=== PATIENT | male | born 1975 | race Caucasian/White ===

== ENCOUNTER 2017-05-26 11:58 | Emergency (ER) | payer SELFPAY ==
[2017-05-26 12:24] VITALS: BP 104/79
[2017-05-26] MEDS ORDERED: NORMAL SALINE 1000 ML 1,000 ML IV ONE (13:20)
--- NOTE | 2017-05-26 13:21 | ER Document Report ---
ED General - General Chief Complaint: Seizure Stated Complaint: SEIZURE Time Seen by Provider: 05/26/17 12:58 Mode of Arrival: Medic Information source: Patient, Relative Notes: 42-year-old male chronic alcoholic drinks about 8-12 beers a night presents after seizure episode today. Patient denies any previous seizures in the past. Patient denies any fevers or chills states he feels fine now. was driving noted he contracted and started shaking. Patient was noted in the past to have electrolyte imbalance due to his alcohol use and decrease sodium intake due to his high blood pressure TRAVEL OUTSIDE OF THE [place] IN LAST 30 DAYS: No - HPI Onset: Just prior to arrival Onset/Duration: Sudden Quality of pain: No pain Severity: Mild Pain Level: Denies Associated symptoms: Other Exacerbated by: Denies Relieved by: Denies Similar symptoms previously: No Recently seen / treated by doctor: Yes - Related Data Allergies/Adverse Reactions: No Known Allergies Allergy (Verified 05/26/17 13:05) Past Medical History - Social History Smoking Status: Current Every Day Smoker Cigarette use (# per day): Yes Chew tobacco use (# tins/day): No Smoking Education Provided: No Frequency of alcohol use: Social Drug Abuse: Marijuana Family History: Reviewed & Not Pertinent Patient has suicidal ideation: No Patient has homicidal ideation: No - Past Medical History Cardiac Medical History: Reports: Hx Hypertension Renal/ Medical History: Denies: Hx Peritoneal Dialysis Past Surgical History: Reports: Hx Orthopedic Surgery Review of Systems - Review of Systems Notes: REVIEW OF SYSTEMS: CONSTITUTIONAL : Denies fever, chills, or sweats. Denies recent illness. EENT: Denies eye, ear, throat, or mouth pain or symptoms. Denies nasal or sinus congestion or discharge. Denies throat, tongue, or mouth swelling or difficulty swallowing. CARDIOVASCULAR: Denies chest pain. Denies palpitations or racing or irregular heart beat. Denies ankle edema. RESPIRATORY: Denies cough, cold, or chest congestion. Denies shortness of breath, difficulty breathing, or wheezing. GASTROINTESTINAL: Denies abdominal pain or distention. Denies nausea, vomiting , or diarrhea. Denies blood in vomitus, stools, or per rectum. Denies black, tarry stools. Denies constipation. GENITOURINARY: Denies difficulty urinating, painful urination, burning, frequency, blood in urine, or discharge. MUSCULOSKELETAL: Denies back or neck pain or stiffness. Denies joint pain or swelling. SKIN: Denies rash, lesions or sores. HEMATOLOGIC : Denies easy bruising or bleeding. LYMPHATIC: Denies swollen, enlarged glands. NEUROLOGICAL: admits ot seizure like activity PSYCHIATRIC: Denies anxiety or stress. Denies depression, suicidal ideation, or homicidal ideation. ALL OTHER SYSTEMS REVIEWED AND NEGATIVE. Dictation was performed using [employer] voice recognition software PHYSICAL EXAMINATION: GENERAL:frail appearing male, no acute distress HEAD: Atraumatic, normocephalic. EYES: Pupils equal round and reactive to light, extraocular movements intact, sclera anicteric, conjunctiva are normal. ENT: Nares patent, oropharynx clear without exudates. Moist mucous membranes. NECK: Normal range of motion, supple without lymphadenopathy LUNGS: Breath sounds clear to auscultation bilaterally and equal. No wheezes rales or rhonchi. HEART: Regular rate and rhythm without murmurs ABDOMEN: Soft, nontender, nondistended abdomen. No guarding, no rebound. No masses appreciated. Musculoskeletal: Normal range of motion, no pitting or edema. No cyanosis. NEUROLOGICAL: Cranial nerves grossly intact. Normal speech, normal gait. Normal sensory, motor exams PSYCH: Normal mood, normal affect. SKIN: Warm, Dry, normal turgor, no rashes or lesions noted. Physical Exam - Vital signs Vitals: Temp Pulse Resp BP Pulse Ox 98.3 F 80 16 104/79 97 05/26/17 12:24 05/26/17 12:24 05/26/17 12:24 05/26/17 12:24 05/26/17 12:24 Course - Re-evaluation Re-evalutation: 05/26/17 13:21 pt looks well , i expect hypnatremia, pt refuses ct head 05/26/17 18:09 Mild hyponatremia is noted, patient wishes ot be discharged, is with him and agrees, i explained my ocncerns of withdrawal seziure, he states he has not decreased his intake, states she will watch closely and has been doing so will dc with extremely close follow up and neuro follow up After performing a Medical Screening Examination, I estimate there is LOW risk for ACUTE GLAUCOMA, TEMPORAL ARTERITIS, MENINGITIS, INCRANIAL HEMORRHAGE, or ISCHEMIC STROKE thus I consider the discharge disposition reasonable. I have reevaluated this patient multiple times and no significant life threatening changes are noted. The patient and I have discussed the diagnosis and risks, and we agree with discharging home with close follow-up with the understanding that symptoms and presentations can change. We also discussed returning to the Emergency Department immediately if new or worsening symptoms occur. We have discussed the symptoms which are most concerning (e.g., changing or worsening symptoms, new numbness or weakness, vomiting, fever) that necessitate immediate return. - Vital Signs Vital signs: Temp Pulse Resp BP Pulse Ox 98.3 F 80 16 104/79 97 05/26/17 12:24 05/26/17 12:24 05/26/17 12:24 05/26/17 12:24 05/26/17 12:24 - Laboratory Result Diagrams: 05/26/17 13:50 05/26/17 13:50 Laboratory results interpreted by me: 05/26/17 05/26/17 13:50 13:50 MCV 104 H MCH 36.7 H Plt Count 127 L Seg Neutrophils % 79.1 H Sodium 133.9 L Potassium 3.3 L Chloride 87 L Carbon Dioxide 32 H Glucose 131 H Magnesium 1.4 L Total Bilirubin 2.7 H Direct Bilirubin 0.9 H AST 126 H Alkaline Phosphatase 161 H Discharge - Discharge Clinical Impression: Seizure, Chronic alcohol use Condition: Stable Disposition: HOME, SELF-CARE Instructions: New Seizure ([facility]) Additional Instructions: You are under seizure precautions you are not allowed to drive until cleared by neurology Referrals: LIBRETY BERRY MD [ACTIVE STAFF] - Follow up tomorrow
[2017-05-26 14:07] LABS: ABSOLUTE LYMPHOCYTES (AUTO) 1.3 10^3/uL (0.5-4.7); ABSOLUTE MONOCYTES (AUTO) 0.6 10^3/uL (0.1-1.4); ABSOLUTE NEUT (AUTO) 7.4 10^3/uL (1.7-8.2); BASOPHILS % (AUTO) 0.3 % (0-2); EOSINOPHILS % (AUTO) 0.2 % (0-6); HEMATOCRIT 47.5 % (37.9-51.0); HEMOGLOBIN 16.7 g/dL (13.5-17.0); LYMPHOCYTES % (AUTO) 14.2 % (13-45); MEAN CORPUSCULAR HEMOGLOBIN 36.7 pg (27.0-33.4); MEAN CORPUSCULAR HGB CONC 35.2 g/dL (32.0-36.0); MEAN CORPUSCULAR VOLUME 104 fl (80-97); MONOCYTES % (AUTO) 6.2 % (3-13); PLATELET COUNT 127 10^3/uL (150-450); RED BLOOD COUNT 4.56 10^6/uL (4.35-5.55); RED CELL DISTRIBUTION WIDTH 13.7 % (11.5-14.0); SEGMENTED NEUTROPHILS % (AUTO) 79.1 % (42-78); TOTAL CELLS COUNTED % (AUTO) 100 %; WHITE BLOOD COUNT 9.4 10^3/uL (4.0-10.5)
[2017-05-26 14:38] LABS: ALANINE AMINOTRANSFERASE 66 U/L (21-72); ALBUMIN 4.5 g/dL (3.5-5.0); ALKALINE PHOSPHATASE 161 U/L (38-126); ANION GAP 15 (5-19); ASPARTATE AMINO TRANSFERASE 126 U/L (17-59); BILIRUBIN,DIRECT 0.9 mg/dL (0.0-0.4); BILIRUBIN,TOTAL 2.7 mg/dL (0.2-1.3); BLOOD UREA NITROGEN 8 mg/dL (7-20); CALCIUM 9.5 mg/dL (8.4-10.2); CARBON DIOXIDE 32 mmol/L (22-30); CHLORIDE 87 mmol/L (98-107); GLUCOSE 131 mg/dL (75-110); MAGNESIUM 1.4 mg/dL (1.6-2.3); POTASSIUM 3.3 mmol/L (3.6-5.0); SODIUM 133.9 mmol/L (137-145); TOTAL PROTEIN 8.1 g/dL (6.3-8.2)
== END 2017-05-26 15:06 | disposition home or self-care (01) ==
LOC: ER 11:58
DX: R56.9 Unspecified convulsions (principal); F10.20 Alcohol dependence, uncomplicated; E87.1 Hypo-osmolality and hyponatremia; I10 Essential (primary) hypertension; F17.210 Nicotine dependence, cigarettes, uncomplicated
CPT/HCPCS: 99285; 96360; 36415; 83735; 85025; 80053; J7030

== ENCOUNTER 2017-10-25 10:53 | Inpatient (IN) | payer SELFPAY ==
--- NOTE | 2017-10-25 11:55 | ER Document Report ---
ED General - General Information source: Patient TRAVEL OUTSIDE OF THE [place] IN LAST 30 DAYS: No <YONY AMAYA - Last Filed: 10/25/17 13:47> <[email or web address] - Last Filed: 10/25/17 19:24> - General Chief Complaint: Abdominal Distention Stated Complaint: ABDOMINAL PAIN/WEAKNESS Time Seen by Provider: 10/25/17 11:43 Notes: 42 y.o male presents to the ED with abdominal distention of onset 7-9 weeks ago. Pt reports that he is not able to eat or drink as much as usual due to poor appetite and feeling bloated. He reports that whenever he does eat or drink it is followed by severe diarrhea. He c/o SOB and a pain across the center of his abd. Pt's skin is jaundiced which his states is better since he quit drinking alcohol about 9 weeks ago, around the onset of his distention. Pt reports weight loss of about 20lbs within the past month. Pt denies any vomiting or CP. at bedside reports a PMHx of HTN for which he has not taken his medication in the past week due to not feeling well but has been monitoring his BP at home and reports that his BP has stayed consistent within the pt's normal limits. She also reports a PMHx of seizures due to hyponatremia. She states that he was admitted to another hospital 3 months ago for dehydration, low sodium and other electrolytes, seizures and hallucinations. (YONY AMAYA) - Related Data Allergies/Adverse Reactions: No Known Allergies Allergy (Verified 05/26/17 13:05) Past Medical History - General Information source: Patient - Social History Smoking Status: Current Every Day Smoker Chew tobacco use (# tins/day): No Smoking Education Provided: Yes Frequency of alcohol use: Hx of Heavy alcohol use, recently quit 9 weeks ago. Drug Abuse: Marijuana Family History: Reviewed & Not Pertinent Patient has suicidal ideation: No Patient has homicidal ideation: No - Past Medical History Cardiac Medical History: Reports: Hx Hypertension Neurological Medical History: Reports: Hx Seizures - due to hyponatremia Renal/ Medical History: Denies: Hx Peritoneal Dialysis Past Surgical History: Reports: Hx Orthopedic Surgery <YONY AMAYA - Last Filed: 10/25/17 13:47> Review of Systems - Review of Systems Constitutional: See HPI, Weight loss - 20 lbs in the past month EENT: No symptoms reported Cardiovascular: See HPI. denies: Chest pain Respiratory: See HPI, Short of breath Gastrointestinal: See HPI, Abdomen distended, Abdominal pain, Diarrhea, Poor appetite, Other - feeling bloated. denies: Vomiting Genitourinary: No symptoms reported Male Genitourinary: No symptoms reported Musculoskeletal: No symptoms reported Skin: See HPI, Change in color - jaundiced but improving Hematologic/Lymphatic: No symptoms reported Neurological/Psychological: No symptoms reported -: Yes All other systems reviewed and negative <YONY AMAYA - Last Filed: 10/25/17 13:47> Physical Exam <YONY AMAYA - Last Filed: 10/25/17 13:47> <MARTA HOLBROOK - Last Filed: 10/25/17 19:24> - Vital signs Vitals: Temp Pulse Resp BP Pulse Ox 98.3 F 94 18 123/83 94 10/25/17 10:57 10/25/17 10:57 10/25/17 10:57 10/25/17 10:57 10/25/17 10:57 - Notes Notes: PHYSICAL EXAM GENERAL: Alert, interacts well. No acute distress. HEAD: Normocephalic, atraumatic. EYES: Pupils equal, round, and reactive to light. Extraocular movements intact. Icteric sclera. ENT: Oral mucosa moist, tongue midline. NECK: Full range of motion. Supple. Trachea midline. LUNGS: Clear to auscultation bilaterally, no wheezes, rales, or rhonchi. Appears SOB. On nasal cannula in room. HEART: Regular rate and rhythm. No murmurs, gallops, or rubs. ABDOMEN: Abd distended with fluid wave consistent with ascites. Epigastric tenderness to palpation. Bowel sounds present in all 4 quadrants. No guarding, rebound, or rigidity. EXTREMITIES: Moves all 4 extremities spontaneously. No edema, radial and dorsalis pedis pulses 2/4 bilaterally. No cyanosis. NEUROLOGICAL: Alert and oriented x3. Normal speech. PSYCH: Normal affect, normal mood. SKIN: Jaundiced. Warm, dry. (YONY AMAYA) Mildly cachectic, jaundiced, sclera anicteric. Later on the nasal cannula was removed and had no further shortness of breath. (MARTA HOLBROOK) Course - Laboratory Result Diagrams: 10/25/17 11:58 10/25/17 11:58 <YONY AMAYA - Last Filed: 10/25/17 13:47> - Laboratory Result Diagrams: 10/25/17 11:58 10/25/17 11:58 <MARTA HOLBROOK - Last Filed: 10/25/17 19:24> - Re-evaluation Re-evalutation: 10/25/17 15:32 CBC shows leukocytosis 11.9, mildly,, coags prolonged likely secondary to alcoholic liver disease with a PT of 17.4, PTT of 41.2, chemistries reveal slight low sodium 135.9, hypokalemia with potassium 3.0 which is repleted by mouth, magnesium was checked and is normal, there is acute renal failure with a BUN of 51 and a creatinine of 5.97, Collier catheter was placed to track I and O' s and to make sure there is not any sort of a distal obstruction prostate enlargement etc., total and direct bilirubin were both elevated, abdominal ultrasound shows no problem with the gallbladder or bile ducts, liver is actually mentioned to look normal and there is moderate ascites, urinalysis does not show dehydration or infection. Chest x-ray shows small amount of sulcal fluid but no infiltrate. Discussed case with hospitalist Dr. Padmini Crawford who agrees to accept her patient to her service on general medical floor. (MARTA HOLBROOK) - Vital Signs Vital signs: Temp Pulse Resp BP Pulse Ox 98.3 F 94 16 129/92 H 97 10/25/17 10:57 10/25/17 10:57 10/25/17 18:01 10/25/17 18:00 10/25/17 18:37 - Laboratory Laboratory results interpreted by mt: 10/25/17 10/25/17 10/25/17 11:58 11:58 11:58 WBC 11.9 H RBC 2.63 L Hgb 10.3 L Hct 29.0 L MCV 110 H MCH 39.1 H Absolute Neutrophils 8.4 H PT 17.4 H APTT 41.2 H Sodium 135.9 L Potassium 3.0 L* Chloride 94 L BUN 51 H Creatinine 5.97 H Est GFR ( Amer) 12 L Est GFR (Non-Af Amer) 10 L Calcium 8.2 L Total Bilirubin 8.1 H Direct Bilirubin 6.7 H AST 66 H Albumin 2.7 L Urine Bilirubin Urine Urobilinogen Urine Ascorbic Acid 10/25/17 12:20 WBC RBC Hgb Hct MCV MCH Absolute Neutrophils PT APTT Sodium Potassium Chloride BUN Creatinine Est GFR ( Amer) Est GFR (Non-Af Amer) Calcium Total Bilirubin Direct Bilirubin AST Albumin Urine Bilirubin SMALL H Urine Urobilinogen 4.0 H Urine Ascorbic Acid 40 H Discharge <YONY AMAYA - Last Filed: 10/25/17 13:47> - Discharge Admitting Provider: Hospitalist - [facility] Unit Admitted: Medical Floor <MARTA HOLBROOK - Last Filed: 10/25/17 19:24> - Discharge Clinical Impression: Alcoholic liver disease Acute renal failure Qualifiers: Acute renal failure type: unspecified Qualified Code(s): N17.9 - Acute kidney failure, unspecified Liver failure without hepatic coma Qualifiers: Liver failure chronicity: acute Qualified Code(s): K72.00 - Acute and subacute hepatic failure without coma Condition: Fair Disposition: ADMITTED INPATIENT Scribe Attestation: 10/25/17 19:24 I personally performed the services described in the documentation, reviewed and edited the documentation which was dictated to the scribe in my presence, and it accurately records my words and actions. (MARTA HOLBROOK) Scribe Documentation - Scribe Written by Matthew:: Matthew Crowe 10/25/17 1205 acting as scribe for :: Yodit <YONY AMAYA - Last Filed: 10/25/17 13:47>
[2017-10-25 12:21] LABS: ABSOLUTE BASOPHILS # (AUTO) 0.1 10^3/uL (0.0-0.2); ABSOLUTE EOSINOPHILS # (AUTO) 0.6 10^3/uL (0.0-0.6); ABSOLUTE LYMPHOCYTES (AUTO) 1.8 10^3/uL (0.5-4.7); ABSOLUTE MONOCYTES (AUTO) 1.1 10^3/uL (0.1-1.4); ABSOLUTE NEUT (AUTO) 8.4 10^3/uL (1.7-8.2); BASOPHILS % (AUTO) 0.6 % (0-2); EOSINOPHILS % (AUTO) 4.7 % (0-6); HEMOGLOBIN 10.3 g/dL (13.5-17.0); LYMPHOCYTES % (AUTO) 15.1 % (13-45); MEAN CORPUSCULAR HEMOGLOBIN 39.1 pg (27.0-33.4); MEAN CORPUSCULAR HGB CONC 35.5 g/dL (32.0-36.0); MEAN CORPUSCULAR VOLUME 110 fl (80-97); PLATELET COUNT 247 10^3/uL (150-450); RED BLOOD COUNT 2.63 10^6/uL (4.35-5.55); RED CELL DISTRIBUTION WIDTH 13.1 % (11.5-14.0); SEGMENTED NEUTROPHILS % (AUTO) 70.6 % (42-78); TOTAL CELLS COUNTED % (AUTO) 100 %; WHITE BLOOD COUNT 11.9 10^3/uL (4.0-10.5)
[2017-10-25 12:34] LABS: INTERNATIONAL RATION (INR) 1.35; PROTHROMBIN TIME 17.4 SEC (11.4-15.4)
[2017-10-25 12:35] LABS: PARTIAL THROMBOPLASTIN TIME 41.2 SEC (23.5-35.8)
[2017-10-25 12:39] LABS: ALANINE AMINOTRANSFERASE 28 U/L (21-72); ALBUMIN 2.7 g/dL (3.5-5.0); ALKALINE PHOSPHATASE 119 U/L (38-126); ANION GAP 15 (5-19); ASPARTATE AMINO TRANSFERASE 66 U/L (17-59); BILIRUBIN,DIRECT 6.7 mg/dL (0.0-0.4); BILIRUBIN,TOTAL 8.1 mg/dL (0.2-1.3); BLOOD UREA NITROGEN 51 mg/dL (7-20); CALCIUM 8.2 mg/dL (8.4-10.2); CARBON DIOXIDE 27 mmol/L (22-30); CHLORIDE 94 mmol/L (98-107); GLUCOSE 98 mg/dL (75-110); SODIUM 135.9 mmol/L (137-145); TOTAL PROTEIN 7.1 g/dL (6.3-8.2)
[2017-10-25 12:42] LABS: ALCOHOL < 10 mg/dL (NONE DETECTED)
--- NOTE | 2017-10-25 12:55 | RADIOLOGY REPORT (SQ) ---
EXAM DESCRIPTION: CHEST 2 VIEWS COMPLETED DATE/TIME: 10/25/2017 12:28 pm REASON FOR STUDY: SOB COMPARISON: None. EXAM PARAMETERS: NUMBER OF VIEWS: two views TECHNIQUE: Digital Frontal and Lateral radiographic views of the chest acquired. RADIATION DOSE: NA LIMITATIONS: none FINDINGS: LUNGS AND PLEURA: Bandlike atelectasis just above the right hemidiaphragm. Lungs are otherwise well inflated and free of focal infiltrates. Trace bilateral pleural effusions. No pneumothorax. MEDIASTINUM AND HILAR STRUCTURES: No masses or contour abnormalities. HEART AND VASCULAR STRUCTURES: Heart normal size. No evidence for failure. BONES: Fixation plate and screws along the right clavicle fracture HARDWARE: None in the chest. OTHER: No other significant finding. IMPRESSION: Bandlike atelectasis just above the right lung base. Trace pleural fluid in the posterior costophrenic sulci. TECHNICAL DOCUMENTATION: JOB ID: [id number] [employer]- All Rights Reserved Reading location - IP/workstation name: [email or web address]
[2017-10-25 12:58] LABS: APPEARANCE,URINE CLEAR; BILIRUBIN,URINE SMALL (NEGATIVE); COLOR,URINE YELLOW; GLUCOSE, URINE NEGATIVE (NEGATIVE); KETONES,URINE NEGATIVE (NEGATIVE); LEUKOCYTE ESTERASE,URINE NEGATIVE (NEGATIVE); NITRITE,URINE NEGATIVE (NEGATIVE); PROTEIN,URINE NEGATIVE (NEGATIVE); URINE SPECIFIC GRAVITY 1.014
[2017-10-25] MEDS ORDERED: NORMAL SALINE 1000 ML 1,000 ML IV ONE (13:06)
[2017-10-25] MEDS ORDERED: POTASSIUM CHLORIDE 10 MEQ CAPSULE.ER PO ONE (13:07)
--- NOTE | 2017-10-25 14:53 | RADIOLOGY REPORT (SQ) ---
EXAM DESCRIPTION: U/S ABDOMEN COMPLETE W/DOPPLER COMPLETED DATE/TIME: 10/25/2017 2:36 pm REASON FOR STUDY: new ascites and jaundice COMPARISON: None. TECHNIQUE: Dynamic and static grayscale images acquired of the abdomen and recorded on PACS. Cristao ciaran selected color Doppler and spectral images recorded. LIMITATIONS: None. FINDINGS: PANCREAS: No masses. Visualized pancreatic duct normal caliber. LIVER: Normal size. 15.6 cm. No masses. Normal echotexture. LIVER VASCULATURE: Normal directional flow of the main portal vein and hepatic veins. GALLBLADDER: No stones. Normal wall thickness. No pericholecystic fluid. ULTRASOUND-DETECTED JORDAN'S SIGN: Negative. INTRAHEPATIC DUCTS AND COMMON DUCT: Common bile duct 8.1 mm. No intrahepatic ductal dilatation. INFERIOR VENA CAVA: Normal flow. AORTA: Proximal transverse diameter normal. Mid and distal aorta suboptimally visualized. RIGHT KIDNEY: Normal size. Normal echogenicity. No solid or suspicious masses. No hydronephros is. No calcifications. LEFT KIDNEY: Normal size. Normal echogenicity. No solid or suspicious masses. No hydronephrosi s. No calcifications. SPLEEN: Normal size. No solid masses. PERITONEAL AND PLEURAL SPACES: Moderate ascites. OTHER: No other significant finding. IMPRESSION: Moderate ascites. TECHNICAL DOCUMENTATION: JOB ID: [id number] [employer] All Rights Reserved Reading location - IP/workstation name: [email or web address]
[2017-10-25] MEDS ORDERED: IPRATROPIUM/ALBUTEROL 0.5-2.5 MG/3 ML AMPUL NEB PRN (16:37)
[2017-10-25] MEDS ORDERED: NICOTINE 21 MG/24 HR PATCH.TD24 TD PRN (16:49)
--- NOTE | 2017-10-25 16:56 | PDOC H&P ---
History of Present Illness Admission Date/PCP: 10/25/17 15:51 NO PCP Patient complains of: Abdominal distension History of Present Illness: VANITA ALMARAZ is a 42 year old male with past medical history of Alcohol dependence-quit 2 months ago Tobacco use Hypertension Alcohol withdrawal seizures He quit drinking approximately 2 months ago, and reports that he has developed progressively worsening abdominal distention since then. Over the past few days he experienced generalized weakness progressively worsening dyspnea on exertion and worsening abdominal distention with generalized aches and pains and insomnia. The patient reports taking Aleve PM to help him sleep at night. He had been on lisinopril which he quit taking a couple of weeks ago since it was making him sick. His urine has been dark. He denies any hematemesis or melena. In the emergency room he was found to have acute renal failure with a creatinine of 5.9, hyperbilirubinemia, bilirubin of 8.1 and abdominal distention due to ascites. He was treated with IV fluids, was given a dose of potassium for hypokalemia and referred for admission. Past Medical History Cardiac Medical History: Reports: Hypertension Neurological Medical History: Reports: Seizures - due to hyponatremia Psychiatric Medical History: Reports: Alcohol Dependency, Tobacco Dependency Past Surgical History Past Surgical History: Reports: Orthopedic Surgery Social History Information Source: Patient Smoking Status: Current Every Day Smoker Frequency of Alcohol Use: None - Was drinking half a gallon of liquor daily up until 2 months ago Drugs: Marijuana Hx Prescription Drug Abuse: No - Advance Directive Resuscitation Status: Full Code Family History Family History: CVA Parental Family History Reviewed: Yes Children Family History Reviewed: Yes Sibling(s) Family History Reviewed.: Yes Medication/Allergy Allergies/Adverse Reactions: No Known Allergies Allergy (Verified 05/26/17 13:05) Review of Systems Constitutional: PRESENT: fatigue, weakness. ABSENT: fever(s), night sweats Eyes: ABSENT: visual disturbances Ears: ABSENT: hearing changes Nose, Mouth, and Throat: ABSENT: sore throat Cardiovascular: PRESENT: dyspnea on exertion, edema Respiratory: PRESENT: dyspnea. ABSENT: cough Gastrointestinal: PRESENT: abdominal pain, bloating, diarrhea. ABSENT: constipation, hematemesis, hematochezia, melena, vomiting Genitourinary: ABSENT: dysuria Musculoskeletal: ABSENT: deformity Integumentary: ABSENT: rash Neurological: PRESENT: confusion. ABSENT: focal weakness Psychiatric: ABSENT: hallucinations Endocrine: ABSENT: cold intolerance Hematologic/Lymphatic: ABSENT: easy bleeding Physical Exam Vital Signs: Temp Pulse Resp BP Pulse Ox 98.3 F 94 12 135/87 H 97 10/25/17 10:57 10/25/17 10:57 10/25/17 16:01 10/25/17 16:00 10/25/17 16:01 General appearance: PRESENT: thin Head exam: PRESENT: normocephalic Eye exam: PRESENT: PERRLA, scleral icterus Ear exam: PRESENT: normal external ear exam Mouth exam: PRESENT: moist Neck exam: ABSENT: tracheal deviation Respiratory exam: PRESENT: symmetrical. ABSENT: crackles, rhonchi, wheezes Cardiovascular exam: PRESENT: RRR. ABSENT: systolic murmur GI/Abdominal exam: PRESENT: distended, normal bowel sounds, soft Rectal exam: PRESENT: deferred Gentrourinary exam: PRESENT: indwelling catheter Extremities exam: ABSENT: pedal edema Musculoskeletal exam: PRESENT: normal inspection Neurological exam: PRESENT: alert, awake, oriented to person, oriented to place , oriented to time, oriented to situation Psychiatric exam: PRESENT: flat affect Skin exam: ABSENT: petechiae Results Impressions: Abdomen Ultrasound 10/25/17 12:12 IMPRESSION: Moderate ascites. Chest X-Ray 10/25/17 12:13 IMPRESSION: Bandlike atelectasis just above the right lung base. Trace pleural fluid in the posterior costophrenic sulci. Assessment & Plan - Diagnosis (1) Alcoholic liver disease Is this a current diagnosis for this admission?: Yes (2) Hypokalemia Is this a current diagnosis for this admission?: Yes Plan: Replace and continue to monitor (3) Acute renal failure Qualifiers: Acute renal failure type: unspecified Qualified Code(s): N17.9 - Acute kidney failure, unspecified Is this a current diagnosis for this admission?: Yes Plan: Likely due to hepatorenal syndrome. Monitor kidney function. Gentle IV fluids. Avoid nephrotoxic agents. Nephrology consult. Abdominal ultrasound showed no hydronephrosis. (4) Liver failure without hepatic coma Qualifiers: Liver failure chronicity: acute Qualified Code(s): K72.00 - Acute and subacute hepatic failure without coma Is this a current diagnosis for this admission?: Yes (5) Nicotine dependence Is this a current diagnosis for this admission?: Yes Plan: Nicotine patch as needed. (6) Insomnia Is this a current diagnosis for this admission?: Yes Plan: Temazepam at bed time (7) Ascites Qualifiers: Ascites type: due to alcoholic hepatitis Qualified Code(s): K70.11 - Alcoholic hepatitis with ascites Is this a current diagnosis for this admission?: Yes Plan: Diagnostic and therapeutic paracentesis. Unable to diurese given kidney function. Check viral hepatitis panel. Patient denies tattoos blood transfusions or IV drug use. - Time Time Spent: Greater than 70 Minutes - Inpatient Certification Based on my medical assessment, after consideration of the patient's comorbidities, presenting symptoms, or acuity I expect that the services needed warrant INPATIENT care.: Yes I certify that my determination is in accordance with my understanding of Medicare's requirements for reasonable and necessary INPATIENT services [42 CFR 412.3e].: Yes Medical Necessity: Need For IV Fluids, Need For Continuous Telemetry Monitoring , Risk of Complication if Not Cared For in Hospital, Risk of Diagnosis Which Will Require Inpatient Eval/Care/Monitoring
[2017-10-25] MEDS: RINGERS SOLUTION,LACTATED 1,000 ML IV PRN ×2 (17:29→20:12)
[2017-10-25] MEDS: HEPARIN SOD (PORCINE) 5,000 UNIT/ML 1 ML SYRINGE SUBCUT SCH (17:30)
[2017-10-25 17:48] LABS: URINE AMPHETAMINES SCREEN NEGATIVE; URINE BARBITURATES SCREEN NEGATIVE; URINE BENZODIAZEPINES SCREEN NEGATIVE; URINE COCAINE SCREEN NEGATIVE; URINE MARIJUANA (THC) SCREEN UNCONFIRMED POSITIVE; URINE METHADONE SCREEN NEGATIVE; URINE PHENCYCLIDINE SCREEN NEGATIVE
[2017-10-25] MEDS: TEMAZEPAM 7.5 MG CAPSULE PO SCH (21:02)
[2017-10-26] MEDS: HEPARIN SOD (PORCINE) 5,000 UNIT/ML 1 ML SYRINGE SUBCUT SCH ×2 (05:06→17:57)
[2017-10-26 05:51] LABS: HEMATOCRIT 26.1 % (37.9-51.0); HEMOGLOBIN 9.4 g/dL (13.5-17.0); MEAN CORPUSCULAR HEMOGLOBIN 39.4 pg (27.0-33.4); MEAN CORPUSCULAR HGB CONC 36.1 g/dL (32.0-36.0); MEAN CORPUSCULAR VOLUME 109 fl (80-97); PLATELET COUNT 210 10^3/uL (150-450); RED BLOOD COUNT 2.38 10^6/uL (4.35-5.55); WHITE BLOOD COUNT 9.6 10^3/uL (4.0-10.5)
[2017-10-26 06:19] LABS: ALANINE AMINOTRANSFERASE 31 U/L (21-72); ALBUMIN 2.3 g/dL (3.5-5.0); ALKALINE PHOSPHATASE 99 U/L (38-126); ANION GAP 10 (5-19); ASPARTATE AMINO TRANSFERASE 59 U/L (17-59); BILIRUBIN,TOTAL 7.1 mg/dL (0.2-1.3); BLOOD UREA NITROGEN 46 mg/dL (7-20); CALCIUM 7.8 mg/dL (8.4-10.2); CARBON DIOXIDE 27 mmol/L (22-30); CHLORIDE 100 mmol/L (98-107); GLUCOSE 87 mg/dL (75-110); PHOSPHORUS 4.8 mg/dL (2.5-4.5); POTASSIUM 3.3 mmol/L (3.6-5.0); SODIUM 137.3 mmol/L (137-145)
[2017-10-26] MEDS: RINGERS SOLUTION,LACTATED 1,000 ML IV PRN (07:19)
[2017-10-26] MEDS ORDERED: LIDOCAINE 1% INJ-PF (10 MG/ML) 30 ML SDV ONE (09:01)
--- NOTE | 2017-10-26 10:14 | RADIOLOGY REPORT (SQ) ---
EXAM DESCRIPTION: U/S ABD PARACENTESIS COMPLETED DATE/TIME: 10/26/2017 10:03 am REASON FOR STUDY: Ascites COMPARISON: None. LIMITATIONS: None. PROCEDURE: Procedure, risks, benefit, and alternative explained to patient who then gave written con sent. The right lower quadrant abdominal wall marked using ultrasound guidance. A time-out was call ed for correct marking verification. Abdomen prepped and draped using sterile technique. Local anest hesia achieved using 6 ml of 1% lidocaine injection. A 6fr [id number] set was introduced into t he peritoneal cavity. Fluid was drained. The catheter was removed and entry site was covered with s terile bandage. No immediate complications noted. Images acquired during the procedure were stored on PACS. FINDINGS: ENTRY SITE: Right lower quadrant FLUID VOLUME: 5000 mL clear yellow fluid FLUID ANALYSIS: Yes, sent for testing OTHER: No immediate complication IMPRESSION: SUCCESSFUL ULTRASOUND GUIDED DIAGNOSTIC AND THERAPEUTIC PARACENTESIS. COMMENT: Patient medication list reviewed:Yes- Quality ID# [id number]:Eligible professional attests to docu menting in the medical record they obtained, updated, or reviewed the patient's current medications. TECHNICAL DOCUMENTATION: JOB ID: [id number] [employer]- All Rights Reserved Reading location - IP/workstation name: [email or web address]
[2017-10-26] MEDS: LACTULOSE SYRUP 20 GM/30 ML UDCUP PO SCH ×3 (10:44→17:57)
[2017-10-26] MEDS: RIFAXIMIN 550 MG TABLET PO SCH ×2 (10:45→22:01)
[2017-10-26 11:49] LABS: FLUID SOURCE ASCITES
[2017-10-26 11:50] LABS: FLUID APPEARANCE CLEAR; FLUID COLOR YELLOW; FLUID TYPE PERITONEAL; FLUID VISCOSITY LIQUID
--- NOTE | 2017-10-26 17:26 | PDOC PROGRESS REPORT ---
Subjective Progress Note for:: 10/26/17 Reason For Visit: ACUTE RENAL FAILURE,ASCITES Physical Exam Vital Signs: Temp Pulse Resp BP Pulse Ox 98.5 F 91 14 119/78 95 10/26/17 15:41 10/26/17 15:41 10/26/17 15:41 10/26/17 15:41 10/26/17 15:41 Intake & Output 10/25/17 10/26/17 10/27/17 06:59 06:59 06:59 Intake Total 1000 Output Total 300 Balance 700 Weight 18.1 kg General appearance: PRESENT: disheveled, thin Head exam: PRESENT: normocephalic Eye exam: PRESENT: PERRLA, scleral icterus Ear exam: PRESENT: normal external ear exam Mouth exam: PRESENT: moist Teeth exam: PRESENT: poor dentation, other - Broken lower R premolars with swelling and tenderness Throat exam: ABSENT: post pharyngeal erythema Neck exam: ABSENT: tracheal deviation Respiratory exam: PRESENT: symmetrical, unlabored. ABSENT: crackles Cardiovascular exam: PRESENT: RRR GI/Abdominal exam: PRESENT: soft - less distended. ABSENT: tenderness Rectal exam: PRESENT: deferred Extremities exam: ABSENT: pedal edema Neurological exam: PRESENT: alert, awake, oriented to person, oriented to place , oriented to time, oriented to situation Psychiatric exam: PRESENT: flat affect Skin exam: PRESENT: jaundice. ABSENT: petechiae, rash Results Laboratory Results: 10/26/17 05:27 10/26/17 05:27 10/26/17 10/26/17 10/26/17 05:27 05:27 05:27 WBC 9.6 RBC 2.38 L Hgb 9.4 L Hct 26.1 L MCV 109 H MCH 39.4 H MCHC 36.1 H RDW 13.0 Plt Count 210 Sodium 137.3 Potassium 3.3 L Chloride 100 Carbon Dioxide 27 Anion Gap 10 BUN 46 H Creatinine 5.77 H Est GFR ( Amer) 13 L Est GFR (Non-Af Amer) 11 L Glucose 87 Calcium 7.8 L Phosphorus 4.8 H Magnesium 1.9 Total Bilirubin 7.1 H AST 59 ALT 31 Alkaline Phosphatase 99 Ammonia 84.2 H Total Protein 6.0 L Albumin 2.3 L Fluid Type Fluid Source Fluid Color Fluid Appearance Fluid Viscosity Fluid WBC Fluid RBC 10/26/17 09:30 WBC RBC Hgb Hct MCV MCH MCHC RDW Plt Count Sodium Potassium Chloride Carbon Dioxide Anion Gap BUN Creatinine Est GFR ( Amer) Est GFR (Non-Af Amer) Glucose Calcium Phosphorus Magnesium Total Bilirubin AST ALT Alkaline Phosphatase Ammonia Total Protein Albumin Fluid Type PERITONEAL Fluid Source ASCITES Fluid Color YELLOW Fluid Appearance CLEAR Fluid Viscosity LIQUID Fluid WBC 100 Fluid RBC 34 Impressions: Abdomen Ultrasound 10/25/17 12:12 IMPRESSION: Moderate ascites. Chest X-Ray 10/25/17 12:13 IMPRESSION: Bandlike atelectasis just above the right lung base. Trace pleural fluid in the posterior costophrenic sulci. Paracentesis Ultrasound 10/26/17 07:00 IMPRESSION: SUCCESSFUL ULTRASOUND GUIDED DIAGNOSTIC AND THERAPEUTIC PARACENTESIS. Assessment & Plan - Diagnosis (1) Alcoholic liver disease Is this a current diagnosis for this admission?: Yes Plan: Continue rifaximin. Diuretics on hold due to renal function. Continue lactulose. (2) Hypokalemia Is this a current diagnosis for this admission?: Yes Plan: Replace and continue to monitor (3) Acute renal failure Qualifiers: Acute renal failure type: unspecified Qualified Code(s): N17.9 - Acute kidney failure, unspecified Is this a current diagnosis for this admission?: Yes Plan: Likely due to hepatorenal syndrome. Monitor kidney function. Continue gentle IV fluids and avoid nephrotoxic agents. Nephrology consult requested. Abdominal ultrasound showed no hydronephrosis. IV albumin ordered. (4) Liver failure without hepatic coma Qualifiers: Liver failure chronicity: acute Qualified Code(s): K72.00 - Acute and subacute hepatic failure without coma Is this a current diagnosis for this admission?: Yes Plan: As above. (5) Nicotine dependence Is this a current diagnosis for this admission?: Yes Plan: Nicotine patch as needed. (6) Insomnia Is this a current diagnosis for this admission?: Yes Plan: Continue temazepam at bed time (7) Ascites Qualifiers: Ascites type: due to alcoholic hepatitis Qualified Code(s): K70.11 - Alcoholic hepatitis with ascites Is this a current diagnosis for this admission?: Yes Plan: Status post paracentesis, 5 L removed. Fluid WBC count was 100 cells per cc. Viral hepatitis panel-pending. Patient denied tattoos blood transfusions or IV drug use. (8) Infected tooth Is this a current diagnosis for this admission?: Yes Plan: Will need extraction. Start Augmentin. - Time Time Spent with patient: 35 or more minutes
--- NOTE | 2017-10-26 17:47 | PDOC CONSULTATION ---
Consultation Consult Date: 10/26/17 Attending physician:: RATNA RAMACHANDRAN Consult reason:: I was asked to see the patient because of acute renal failure. History of Present Illness Admission Date/PCP: 10/25/17 15:51 History of Present Illness: VANITA ALMARAZ is a 42 year old male with history of hypertension, alcohol and tobacco dependency who was admitted because of abdominal distention yesterday. On admission patient was found to have ascites. Patient is not a very good historian and really could not give me a very good history. He said he has not seen a physician lately because he lost his insurance. He mentioned that he had history of pancreatitis in the past and would occasionally have nausea nor vomiting but not currently. He said he quit alcohol drinking about 8-9 weeks ago. He noted abdominal distention since 9 weeks ago and it has progressively gotten worse. There was a note of generalized weakness and worsening dyspnea on exertion. He takes Aleve p.m. for sleep for the last 2 months. There was a note that the patient was taking lisinopril until 2 weeks ago but patient could not really confirm that telling me to as his but his is not around. His urine is noted to be dark. There is no note of any hematemesis no melena. Patient denies any fever. He said he is eating good and is drinking fluids okay at home prior to admission. On admission the patient has elevated BUN of 51 with creatinine of 5.97 with estimated GFR of 10. Today is a BUN of 46, creatinine 5.77 with estimated GFR of 11. On the May 26, 2017 he has a BUN of 8 with creatinine of 0.82 and estimated GFR greater than 60. He denies any problems with his kidneys in the past. He denies any history of kidney stones, hepatitis nor any episodes of kidney failure in the past. Today the patient had large volume paracentesis obtaining 5 L of ascitic fluid. Does not seem to be really interested in engaging into much conversation. He does not have any other further complaints. Past Medical History Cardiac Medical History: Reports: Hypertension-primary Neurological Medical History: Reports: Seizures - due to hyponatremia Psychiatric Medical History: Reports: Alcohol Dependency, Tobacco Dependency Past Surgical History Past Surgical History: Reports: Orthopedic Surgery - Shoulder surgery with placement of some plates secondary to injury Social History Information Source: Patient, [facility] Records Smoking Status: Current Every Day Smoker Cigarettes Packs Per Day: 1 Frequency of Alcohol Use: Heavy Drugs: Marijuana Hx Prescription Drug Abuse: No - Advance Directive Resuscitation Status: Full Code Family History Family History: CVA - Mother, Hypertension - Mother Parental Family History Reviewed: Yes Children Family History Reviewed: Yes Sibling(s) Family History Reviewed.: Yes Medication/Allergy Home Medications: Lisinopril [Prinivil] 20 mg PO DAILY 10/25/17 Naproxen Sod/Diphenhydramine [Aleve Pm Caplet] 1 tab PO HSP PRN 10/25/17 Allergies/Adverse Reactions: No Known Allergies Allergy (Verified 05/26/17 13:05) Review of Systems All systems: reviewed and no additional remarkable complaints except as stated Review of Systems: Constitutional: ABSENT: chills, fever(s), headache(s), weight gain, weight loss ; admits generalized weakness Eyes: ABSENT: visual disturbances Ears: ABSENT: hearing changes Cardiovascular: ABSENT: chest pain, edema, orthropnea, palpitations; admits dyspnea on exertion Respiratory: ABSENT: cough, dyspnea, hemoptysis Gastrointestinal: ABSENT: abdominal pain, constipation, diarrhea, hematemesis, hematochezia, nausea, vomiting; admits abdominal distention Genitourinary: ABSENT: dysuria, hematuria Musculoskeletal: ABSENT: joint swelling Integumentary: ABSENT: rash, wounds Neurological: ABSENT: abnormal gait, abnormal speech, confusion, dizziness, focal weakness, numbness, syncope Psychiatric: ABSENT: anxiety, depression Endocrine: ABSENT: cold intolerance, heat intolerance, polydipsia, polyuria Hematologic/Lymphatic: ABSENT: easy bleeding, easy bruising, lymphadenopathy Physical Exam Vital Signs: Temp Pulse Resp BP Pulse Ox 98.5 F 91 14 119/78 95 10/26/17 15:41 10/26/17 15:41 10/26/17 15:41 10/26/17 15:41 10/26/17 15:41 Intake & Output 10/25/17 10/26/17 10/27/17 06:59 06:59 06:59 Intake Total 1000 Output Total 300 Balance 700 Weight 18.1 kg Exam: General appearance: no acute distress, cooperative, fairly-developed, fairly - nourished Head exam: PRESENT: atraumatic, normocephalic Eye exam: PRESENT: Conjunctiva pale, EOMI, PERRLA. ABSENT: conjunctival injection, Mouth exam: PRESENT: moist, neck supple, tongue midline Neck exam: PRESENT: full ROM. ABSENT: carotid bruit, JVD, lymphadenopathy, thyromegaly Respiratory exam: PRESENT: clear to auscultation bilaterally. ABSENT: rales, rhonchi, stridor, wheezes Cardiovascular exam: PRESENT: RRR, +S1, +S2. ABSENT: systolic murmur Pulses: PRESENT: normal radial pulses, normal dorsalis pedis pulses GI/Abdominal exam: PRESENT: normal bowel sounds, soft. Positive ascites ABSENT : guarding, mass, tenderness Rectal exam: deferred Extremities exam: PRESENT: full ROM. ABSENT: calf tenderness, pedal edema Musculoskeletal: PRESENT: full ROM. ABSENT: deformity Neurological exam: PRESENT: alert, Awake, Oriented to person, Oriented to place , Oriented to time, reflexes normal, CN II-XII grossly intact. ABSENT: motor sensory deficit Psychiatric exam: PRESENT: appropriate affect, normal mood. ABSENT: homicidal ideation, suicidal ideation Skin exam: PRESENT: intact, dry, warm. ABSENT: rash Results Laboratory Results: 10/26/17 05:27 10/26/17 05:27 10/26/17 10/26/17 10/26/17 05:27 05:27 05:27 WBC 9.6 RBC 2.38 L Hgb 9.4 L Hct 26.1 L MCV 109 H MCH 39.4 H MCHC 36.1 H RDW 13.0 Plt Count 210 Sodium 137.3 Potassium 3.3 L Chloride 100 Carbon Dioxide 27 Anion Gap 10 BUN 46 H Creatinine 5.77 H Est GFR ( Amer) 13 L Est GFR (Non-Af Amer) 11 L Glucose 87 Calcium 7.8 L Phosphorus 4.8 H Magnesium 1.9 Total Bilirubin 7.1 H AST 59 ALT 31 Alkaline Phosphatase 99 Ammonia 84.2 H Total Protein 6.0 L Albumin 2.3 L Fluid Type Fluid Source Fluid Color Fluid Appearance Fluid Viscosity Fluid WBC Fluid RBC 10/26/17 09:30 WBC RBC Hgb Hct MCV MCH MCHC RDW Plt Count Sodium Potassium Chloride Carbon Dioxide Anion Gap BUN Creatinine Est GFR ( Amer) Est GFR (Non-Af Amer) Glucose Calcium Phosphorus Magnesium Total Bilirubin AST ALT Alkaline Phosphatase Ammonia Total Protein Albumin Fluid Type PERITONEAL Fluid Source ASCITES Fluid Color YELLOW Fluid Appearance CLEAR Fluid Viscosity LIQUID Fluid WBC 100 Fluid RBC 34 Impressions: Abdomen Ultrasound 10/25/17 12:12 IMPRESSION: Moderate ascites. Chest X-Ray 10/25/17 12:13 IMPRESSION: Bandlike atelectasis just above the right lung base. Trace pleural fluid in the posterior costophrenic sulci. Paracentesis Ultrasound 10/26/17 07:00 IMPRESSION: SUCCESSFUL ULTRASOUND GUIDED DIAGNOSTIC AND THERAPEUTIC PARACENTESIS. Assessment & Plan - Diagnosis (1) Acute kidney injury Is this a current diagnosis for this admission?: Yes Plan: Currently nonoliguric without any proteinuria nor hematuria. This is likely due to hepatorenal syndrome with differential diagnosis of prerenal azotemia and possible acute tubular necrosis. Currently there is no urgent indication for renal replacement therapy. However the patient's kidney function continues to get worse and not better then he may require that. I discussed this with the patient in he said he would agree to do dialysis treatment if necessary. For patients with hepatorenal syndrome, it is important to determine the prognosis of the liver disease. If the prognosis of the liver disease is very poor and the patient is not a candidate for any liver transplant and patient may not be a good candidate for chronic dialysis treatment. Monitor kidney function and continue to avoid nephrotoxic medications. Will check his urine sodium and urine creatinine. Will follow and evaluate for any need of renal replacement therapy during his hospitalization. Continue cautious IV fluids. (2) Alcoholic liver disease Is this a current diagnosis for this admission?: Yes (3) Ascites Qualifiers: Ascites type: due to alcoholic hepatitis Qualified Code(s): K70.11 - Alcoholic hepatitis with ascites Is this a current diagnosis for this admission?: Yes Plan: Status post large volume paracentesis today. Patient's ammonia level seems to be increased. Patient needs to be monitored for development of hepatic encephalopathy. (4) Hyperphosphatemia Is this a current diagnosis for this admission?: Yes (5) Hypoalbuminemia Is this a current diagnosis for this admission?: Yes (6) Coagulopathy Is this a current diagnosis for this admission?: Yes (7) Hypokalemia Is this a current diagnosis for this admission?: Yes Plan: Cautious potassium replacement. - Notes Notes: Thank you very much for this consultation , will follow the patient with you. - Time Time Spent: 50 to 70 Minutes
[2017-10-26] MEDS ORDERED: AMOXICILLIN TR/POT CLAVULANATE 500-125 MG TAB PO ONE (19:30)
[2017-10-26] MEDS: ALBUMIN HUMAN 50 GM/200 ML RTUINJ IV SCH (19:34)
[2017-10-26] MEDS: TEMAZEPAM 7.5 MG CAPSULE PO SCH (21:09)
[2017-10-26 23:27] LABS: URINE CREATININE 196.6 mg/dL (22-328)
[2017-10-27] MEDS: RINGERS SOLUTION,LACTATED 1,000 ML IV PRN (04:03)
[2017-10-27] MEDS: HEPARIN SOD (PORCINE) 5,000 UNIT/ML 1 ML SYRINGE SUBCUT SCH ×2 (05:36→17:18)
[2017-10-27 05:44] LABS: HEMATOCRIT 24.7 % (37.9-51.0); HEMOGLOBIN 8.7 g/dL (13.5-17.0); MEAN CORPUSCULAR HEMOGLOBIN 38.5 pg (27.0-33.4); MEAN CORPUSCULAR HGB CONC 35.1 g/dL (32.0-36.0); MEAN CORPUSCULAR VOLUME 110 fl (80-97); PLATELET COUNT 172 10^3/uL (150-450); RED BLOOD COUNT 2.26 10^6/uL (4.35-5.55); RED CELL DISTRIBUTION WIDTH 13.1 % (11.5-14.0); WHITE BLOOD COUNT 11.2 10^3/uL (4.0-10.5)
[2017-10-27 06:03] LABS: ALANINE AMINOTRANSFERASE 32 U/L (21-72); ALBUMIN 2.6 g/dL (3.5-5.0); ALKALINE PHOSPHATASE 92 U/L (38-126); ANION GAP 11 (5-19); ASPARTATE AMINO TRANSFERASE 59 U/L (17-59); BILIRUBIN,DIRECT 4.6 mg/dL (0.0-0.4); BILIRUBIN,TOTAL 5.8 mg/dL (0.2-1.3); BLOOD UREA NITROGEN 41 mg/dL (7-20); CALCIUM 7.9 mg/dL (8.4-10.2); CARBON DIOXIDE 25 mmol/L (22-30); CHLORIDE 101 mmol/L (98-107); GLUCOSE 83 mg/dL (75-110); PHOSPHORUS 4.2 mg/dL (2.5-4.5); POTASSIUM 3.2 mmol/L (3.6-5.0); SODIUM 136.6 mmol/L (137-145); TOTAL PROTEIN 6.2 g/dL (6.3-8.2)
[2017-10-27] MEDS: AMOXICILLIN TR/POT CLAVULANATE 500-125 MG TAB PO SCH ×3 (06:51→21:52)
[2017-10-27 07:44] LABS: HEPATITIS A AB IGM Negative (Negative); HEPATITIS B CORE AB IGM Negative (Negative); HEPATITS B SURFACE ANTIGEN Negative (Negative)
[2017-10-27] MEDS ORDERED: POTASSIUM CHLORIDE 20 MEQ/15 ML UDCUP PO ONE (08:05)
[2017-10-27] MEDS: ALBUMIN HUMAN 50 GM/200 ML RTUINJ IV SCH ×2 (08:46→21:34)
[2017-10-27 09:14] LABS: HEPATITIS C VIRUS ANTIBODY <0.1 s/co ratio (0.0-0.9)
[2017-10-27] MEDS: LACTULOSE SYRUP 20 GM/30 ML UDCUP PO SCH ×3 (10:24→17:18)
[2017-10-27] MEDS: MAGNESIUM OXIDE 400 MG TABLET PO SCH ×2 (10:32→18:03)
[2017-10-27] MEDS: RIFAXIMIN 550 MG TABLET PO SCH ×2 (10:33→22:01)
--- NOTE | 2017-10-27 14:22 | PDOC PROGRESS REPORT ---
Subjective Progress Note for:: 10/27/17 Subjective:: 42 yr old male with alcoholic liver disease presented with jaundice and renal failure. 5L paracentesis on 10/26/17. Child's Blair class C- prognosis very poor. Discussed with patient and his fiance. Nephrology input appreciated. Continue medical management and monitor labs. Continue Albumin IV infusions. Reason For Visit: ACUTE RENAL FAILURE,ASCITES Physical Exam Vital Signs: Temp Pulse Resp BP Pulse Ox 97.9 F 91 16 110/82 96 10/27/17 11:05 10/27/17 12:22 10/27/17 12:22 10/27/17 11:05 10/27/17 12:22 Intake & Output 10/26/17 10/27/17 10/28/17 06:59 06:59 06:59 Intake Total 1000 2181 Output Total 300 400 Balance 700 1781 Weight 18.1 kg 73.8 kg General appearance: PRESENT: disheveled, thin Head exam: PRESENT: normocephalic Eye exam: PRESENT: scleral icterus Mouth exam: PRESENT: moist Neck exam: ABSENT: tracheal deviation Respiratory exam: PRESENT: symmetrical, unlabored. ABSENT: wheezes Cardiovascular exam: PRESENT: RRR GI/Abdominal exam: PRESENT: soft. ABSENT: tenderness Rectal exam: PRESENT: deferred Extremities exam: ABSENT: pedal edema Neurological exam: PRESENT: alert, awake Skin exam: PRESENT: jaundice Results Laboratory Results: 10/27/17 03:54 10/27/17 03:54 10/27/17 10/27/17 03:54 03:54 WBC 11.2 H RBC 2.26 L Hgb 8.7 L Hct 24.7 L MCV 110 H MCH 38.5 H MCHC 35.1 RDW 13.1 Plt Count 172 Sodium 136.6 L Potassium 3.2 L Chloride 101 Carbon Dioxide 25 Anion Gap 11 BUN 41 H Creatinine 4.88 H Est GFR ( Amer) 16 L Est GFR (Non-Af Amer) 13 L Glucose 83 Calcium 7.9 L Phosphorus 4.2 Magnesium 1.8 Total Bilirubin 5.8 H AST 59 ALT 32 Alkaline Phosphatase 92 Total Protein 6.2 L Albumin 2.6 L Impressions: Abdomen Ultrasound 10/25/17 12:12 IMPRESSION: Moderate ascites. Chest X-Ray 10/25/17 12:13 IMPRESSION: Bandlike atelectasis just above the right lung base. Trace pleural fluid in the posterior costophrenic sulci. Paracentesis Ultrasound 10/26/17 07:00 IMPRESSION: SUCCESSFUL ULTRASOUND GUIDED DIAGNOSTIC AND THERAPEUTIC PARACENTESIS. Assessment & Plan - Diagnosis (1) Alcoholic liver disease Is this a current diagnosis for this admission?: Yes Plan: Continue Rifaximin and Lactulose. (2) Hypokalemia Is this a current diagnosis for this admission?: Yes Plan: Replace and continue to monitor (3) Acute renal failure Qualifiers: Acute renal failure type: unspecified Qualified Code(s): N17.9 - Acute kidney failure, unspecified Is this a current diagnosis for this admission?: Yes Plan: Likely due to hepatorenal syndrome. Monitor kidney function. Nephrology consult appreciated. Poor prognosis Continue IV albumin. (4) Liver failure without hepatic coma Qualifiers: Liver failure chronicity: acute Qualified Code(s): K72.00 - Acute and subacute hepatic failure without coma Is this a current diagnosis for this admission?: Yes Plan: As above. (5) Nicotine dependence Is this a current diagnosis for this admission?: Yes Plan: Nicotine patch as needed. (6) Insomnia Is this a current diagnosis for this admission?: Yes Plan: Continue temazepam at bed time (7) Ascites Qualifiers: Ascites type: due to alcoholic hepatitis Qualified Code(s): K70.11 - Alcoholic hepatitis with ascites Is this a current diagnosis for this admission?: Yes Plan: Status post paracentesis, 5 L removed- no e/o SBP Fluid WBC count was 100 cells per cc. Viral hepatitis panel-pending. (8) Infected tooth Is this a current diagnosis for this admission?: Yes Plan: Will need extraction, no oral surgery available in house. Start Augmentin. - Time Time Spent with patient: 35 or more minutes
--- NOTE | 2017-10-27 20:39 | PDOC PROGRESS REPORT ---
Subjective Progress Note for:: 10/27/17 Subjective:: Patient states that he is doing fine. However on further questioning he admits that he is having explosive diarrhea confirmed by the nurse. He said the diarrhea just started here. Lactulose was even on hold. The nurse tells me that Dr. Crawford talked to the patient regarding possible transfer to [facility] to be evaluated by a bird sitter but then he refused and is wanted to go home without any treatment. Reportedly the was around and started crying. So I spoke to the patient tonight trying to confirm his wishes. He now told me that he feels bad seeing his cry over him and is now willing to be treated just for his . He is now telling me that he is willing to be evaluated by a bird sitter and if needed would also agree for dialysis. Patient remains to be oliguric however there are no signs of hypervolemic state. He denies any shortness of breath. He is unable to eat because of his dental abscess. He otherwise does not have any other complaints. Reason For Visit: ACUTE RENAL FAILURE,ASCITES Physical Exam Vital Signs: Temp Pulse Resp BP Pulse Ox 98.3 F 93 13 105/55 L 97 10/27/17 19:37 10/27/17 19:37 10/27/17 19:37 10/27/17 19:37 10/27/17 19:37 Intake & Output 10/26/17 10/27/17 10/28/17 06:59 06:59 06:59 Intake Total 1000 2181 100 Output Total 300 400 300 Balance 700 1781 -200 Weight 18.1 kg 73.8 kg Exam: General appearance: PRESENT: no acute distress, cooperative, well-developed, well-nourished Head exam: PRESENT: atraumatic, normocephalic Eye exam: PRESENT: conjunctiva pink, PERRLA. Positive scleral icterus Neck exam: ABSENT: JVD Respiratory exam: PRESENT: Diminished breath sounds. ABSENT: crackles, rales, rhonchi, unlabored, wheezes Cardiovascular exam: PRESENT: Regular rate rhythm -+S1, +S2. ABSENT: diastolic murmur, systolic murmur GI/Abdominal exam: PRESENT: normal bowel sounds, soft. Distended abdomen with an obvious ascites ABSENT: guarding, mass, tenderness Extremities exam: ABSENT: No edema Neurological exam: PRESENT: alert, awake, oriented to person, place and time. Skin exam: PRESENT: dry, warm, positive jaundice Results Laboratory Results: 10/27/17 03:54 10/27/17 03:54 10/27/17 10/27/17 03:54 03:54 WBC 11.2 H RBC 2.26 L Hgb 8.7 L Hct 24.7 L MCV 110 H MCH 38.5 H MCHC 35.1 RDW 13.1 Plt Count 172 Sodium 136.6 L Potassium 3.2 L Chloride 101 Carbon Dioxide 25 Anion Gap 11 BUN 41 H Creatinine 4.88 H Est GFR ( Amer) 16 L Est GFR (Non-Af Amer) 13 L Glucose 83 Calcium 7.9 L Phosphorus 4.2 Magnesium 1.8 Total Bilirubin 5.8 H AST 59 ALT 32 Alkaline Phosphatase 92 Total Protein 6.2 L Albumin 2.6 L Impressions: Abdomen Ultrasound 10/25/17 12:12 IMPRESSION: Moderate ascites. Chest X-Ray 10/25/17 12:13 IMPRESSION: Bandlike atelectasis just above the right lung base. Trace pleural fluid in the posterior costophrenic sulci. Paracentesis Ultrasound 10/26/17 07:00 IMPRESSION: SUCCESSFUL ULTRASOUND GUIDED DIAGNOSTIC AND THERAPEUTIC PARACENTESIS. Assessment & Plan - Diagnosis (1) Acute kidney injury Is this a current diagnosis for this admission?: Yes Plan: Currently oliguric likely secondary to hepatorenal syndrome with urine sodium of 10 and minimal response to IV fluid hydration. Although kidney function seems slightly better than yesterday is not really significantly better. There is no current indication for any urgent renal replacement therapy. Plan of treatment for his liver disease needs to be determined for him to be considered for any chronic dialysis treatment which he is agreeing if needed. Agree with referring patient to [facility] to be evaluated by a bird sitter. As of tonight I think the patient is agreeable to doing that. Patient may be started with low dose diuretics including Lasix. (2) Alcoholic liver disease Is this a current diagnosis for this admission?: Yes (3) Ascites Qualifiers: Ascites type: due to alcoholic hepatitis Qualified Code(s): K70.11 - Alcoholic hepatitis with ascites Is this a current diagnosis for this admission?: Yes (4) Hyperphosphatemia Is this a current diagnosis for this admission?: Yes Plan: Improved. (5) Hypoalbuminemia Is this a current diagnosis for this admission?: Yes Plan: On IV albumin infusions. (6) Coagulopathy Is this a current diagnosis for this admission?: Yes (7) Hypokalemia Is this a current diagnosis for this admission?: Yes Plan: Potassium replacement as needed. (8) Hyponatremia Is this a current diagnosis for this admission?: Yes Plan: Mild secondary to liver disease. - Time Time with patient: 15-25 minutes
[2017-10-27] MEDS: TEMAZEPAM 7.5 MG CAPSULE PO SCH (21:52)
[2017-10-28 05:37] LABS: HEMATOCRIT 22.9 % (37.9-51.0); HEMOGLOBIN 8.2 g/dL (13.5-17.0); MEAN CORPUSCULAR HEMOGLOBIN 39.3 pg (27.0-33.4); MEAN CORPUSCULAR HGB CONC 35.8 g/dL (32.0-36.0); MEAN CORPUSCULAR VOLUME 110 fl (80-97); PLATELET COUNT 176 10^3/uL (150-450); RED BLOOD COUNT 2.09 10^6/uL (4.35-5.55); RED CELL DISTRIBUTION WIDTH 13.1 % (11.5-14.0); WHITE BLOOD COUNT 10.5 10^3/uL (4.0-10.5)
[2017-10-28 06:05] LABS: ALANINE AMINOTRANSFERASE 27 U/L (21-72); ALBUMIN 2.9 g/dL (3.5-5.0); ALKALINE PHOSPHATASE 74 U/L (38-126); ANION GAP 12 (5-19); ASPARTATE AMINO TRANSFERASE 48 U/L (17-59); BILIRUBIN,DIRECT 3.8 mg/dL (0.0-0.4); BILIRUBIN,TOTAL 5.2 mg/dL (0.2-1.3); BLOOD UREA NITROGEN 34 mg/dL (7-20); CALCIUM 8.5 mg/dL (8.4-10.2); CARBON DIOXIDE 23 mmol/L (22-30); CHLORIDE 103 mmol/L (98-107); GLUCOSE 88 mg/dL (75-110); PHOSPHORUS 3.7 mg/dL (2.5-4.5); POTASSIUM 3.5 mmol/L (3.6-5.0); SODIUM 138.3 mmol/L (137-145); TOTAL PROTEIN 6.3 g/dL (6.3-8.2)
[2017-10-28] MEDS: HEPARIN SOD (PORCINE) 5,000 UNIT/ML 1 ML SYRINGE SUBCUT SCH (06:50)
[2017-10-28] MEDS: AMOXICILLIN TR/POT CLAVULANATE 500-125 MG TAB PO SCH ×2 (06:58→21:23)
[2017-10-28] MEDS: ALBUMIN HUMAN 50 GM/200 ML RTUINJ IV SCH ×2 (08:05→20:57)
[2017-10-28] MEDS: LACTULOSE SYRUP 20 GM/30 ML UDCUP PO SCH (10:39)
[2017-10-28] MEDS: MAGNESIUM OXIDE 400 MG TABLET PO SCH (10:47)
[2017-10-28] MEDS: RIFAXIMIN 550 MG TABLET PO SCH (10:47)
[2017-10-28] MEDS ORDERED: RINGERS SOLUTION,LACTATED 1,000 ML IV PRN (13:28)
--- NOTE | 2017-10-28 13:50 | PDOC PROGRESS REPORT ---
Subjective Progress Note for:: 10/28/17 Subjective:: 42 yr old male with alcoholic liver disease presented with jaundice and renal failure. 5L paracentesis on 10/26/17. No evidence of SBP. The patient's case was discussed with Dr. Zazueta, roll over press operator on-call at [facility]. She feels that this is not purely hepatorenal syndrome and that there is a component of prerenal ARF. Dr. Zazueta does not feel that the patient needs immediate transfer to [facility] at this time. She recommended continuing management of his renal failure as an inpatient until renal function improves. They would be happy to see him in follow-up at the liver clinic. Nephrology input appreciated. Continue medical management and monitor labs. Continue Albumin IV infusions. Reason For Visit: ACUTE RENAL FAILURE,ASCITES Physical Exam Vital Signs: Temp Pulse Resp BP Pulse Ox 98.7 F 86 16 121/79 96 10/28/17 07:53 10/28/17 07:53 10/28/17 07:53 10/28/17 07:53 10/28/17 07:53 Intake & Output 10/27/17 10/28/17 10/29/17 06:59 06:59 06:59 Intake Total 2181 500 Output Total 400 500 Balance 1781 0 Weight 73.8 kg 73.8 kg General appearance: PRESENT: no acute distress, thin Head exam: PRESENT: normocephalic Eye exam: PRESENT: scleral icterus Ear exam: PRESENT: normal external ear exam Mouth exam: PRESENT: moist Teeth exam: PRESENT: other - Broken right lower premolars with tenderness Respiratory exam: PRESENT: symmetrical, unlabored Cardiovascular exam: PRESENT: RRR GI/Abdominal exam: PRESENT: distended, normal bowel sounds, soft. ABSENT: tenderness Rectal exam: PRESENT: deferred Gentrourinary exam: PRESENT: indwelling catheter Extremities exam: ABSENT: calf tenderness Neurological exam: PRESENT: alert, awake, oriented to person, oriented to place , oriented to time, oriented to situation Psychiatric exam: PRESENT: appropriate affect Skin exam: PRESENT: jaundice Results Laboratory Results: 10/28/17 04:57 10/28/17 04:57 10/28/17 10/28/17 04:57 04:57 WBC 10.5 RBC 2.09 L Hgb 8.2 L Hct 22.9 L MCV 110 H MCH 39.3 H MCHC 35.8 RDW 13.1 Plt Count 176 Sodium 138.3 Potassium 3.5 L Chloride 103 Carbon Dioxide 23 Anion Gap 12 BUN 34 H Creatinine 4.32 H Est GFR ( Amer) 18 L Est GFR (Non-Af Amer) 15 L Glucose 88 Calcium 8.5 Phosphorus 3.7 Magnesium 1.9 Total Bilirubin 5.2 H AST 48 ALT 27 Alkaline Phosphatase 74 Total Protein 6.3 Albumin 2.9 L Impressions: Abdomen Ultrasound 10/25/17 12:12 IMPRESSION: Moderate ascites. Chest X-Ray 10/25/17 12:13 IMPRESSION: Bandlike atelectasis just above the right lung base. Trace pleural fluid in the posterior costophrenic sulci. Paracentesis Ultrasound 10/26/17 07:00 IMPRESSION: SUCCESSFUL ULTRASOUND GUIDED DIAGNOSTIC AND THERAPEUTIC PARACENTESIS. Assessment & Plan - Diagnosis (1) Alcoholic liver disease Is this a current diagnosis for this admission?: Yes Plan: Continue Rifaximin and Lactulose. (2) Hypokalemia Is this a current diagnosis for this admission?: Yes Plan: Replace and continue to monitor (3) Acute renal failure Qualifiers: Acute renal failure type: unspecified Qualified Code(s): N17.9 - Acute kidney failure, unspecified Is this a current diagnosis for this admission?: Yes Plan: Improving kidney function. Nephrology consult appreciated. Continue IV albumin and fluids. (4) Liver failure without hepatic coma Qualifiers: Liver failure chronicity: acute Qualified Code(s): K72.00 - Acute and subacute hepatic failure without coma Is this a current diagnosis for this admission?: Yes Plan: As above. No diuretics at this time due to ARF (5) Nicotine dependence Is this a current diagnosis for this admission?: Yes Plan: Nicotine patch as needed. (6) Insomnia Is this a current diagnosis for this admission?: Yes Plan: Continue temazepam at bed time (7) Ascites Qualifiers: Ascites type: due to alcoholic hepatitis Qualified Code(s): K70.11 - Alcoholic hepatitis with ascites Is this a current diagnosis for this admission?: Yes Plan: Status post paracentesis, 5 L removed- no e/o SBP Fluid WBC count was 100 cells per cc. Viral hepatitis panel- negative (8) Infected tooth Is this a current diagnosis for this admission?: Yes Plan: Will need extraction, no oral surgery available in house. Day 2 Augmentin. - Time Time Spent with patient: 35 or more minutes
[2017-10-28] MEDS ORDERED: CHOLESTYRAMINE/ASPARTAME 4 GM PACKET PO ONE (18:00)
[2017-10-28] MEDS: LACTOBACILLUS ACIDOPHILUS 250 MG TAB PO SCH (18:50)
[2017-10-28] MEDS: LIDOCAINE 5% OINTMENT 35.44 GM TP PRN (21:00)
[2017-10-28] MEDS ORDERED: VANCOMYCIN HCL INJ 500 MG VIAL PO SCH ×2 (21:00)
[2017-10-28] MEDS ORDERED: CHOLESTYRAMINE/ASPARTAME 4 GM PACKET PO SCH (22:00)
[2017-10-28] MEDS: TEMAZEPAM 7.5 MG CAPSULE PO SCH (22:53)
[2017-10-29] MEDS ORDERED: VANCOMYCIN HCL INJ 500 MG VIAL PO SCH (06:00)
[2017-10-29 06:22] LABS: HEMATOCRIT 23.2 % (37.9-51.0); HEMOGLOBIN 8.3 g/dL (13.5-17.0); MEAN CORPUSCULAR HEMOGLOBIN 38.9 pg (27.0-33.4); MEAN CORPUSCULAR HGB CONC 35.8 g/dL (32.0-36.0); MEAN CORPUSCULAR VOLUME 109 fl (80-97); PLATELET COUNT 169 10^3/uL (150-450); RED BLOOD COUNT 2.14 10^6/uL (4.35-5.55); WHITE BLOOD COUNT 9.3 10^3/uL (4.0-10.5)
[2017-10-29 06:47] LABS: ALANINE AMINOTRANSFERASE 27 U/L (21-72); ALBUMIN 3.2 g/dL (3.5-5.0); ALKALINE PHOSPHATASE 61 U/L (38-126); ANION GAP 12 (5-19); ASPARTATE AMINO TRANSFERASE 44 U/L (17-59); BILIRUBIN,DIRECT 3.5 mg/dL (0.0-0.4); BILIRUBIN,TOTAL 5.2 mg/dL (0.2-1.3); BLOOD UREA NITROGEN 26 mg/dL (7-20); CALCIUM 8.8 mg/dL (8.4-10.2); CARBON DIOXIDE 21 mmol/L (22-30); CHLORIDE 104 mmol/L (98-107); GLUCOSE 95 mg/dL (75-110); PHOSPHORUS 3.7 mg/dL (2.5-4.5); POTASSIUM 3.4 mmol/L (3.6-5.0); SODIUM 136.9 mmol/L (137-145); TOTAL PROTEIN 6.2 g/dL (6.3-8.2)
[2017-10-29] MEDS: AMOXICILLIN TR/POT CLAVULANATE 500-125 MG TAB PO SCH ×2 (09:21→21:23)
[2017-10-29] MEDS: LACTOBACILLUS ACIDOPHILUS 250 MG TAB PO SCH ×2 (09:21→17:18)
[2017-10-29] MEDS: ALBUMIN HUMAN 50 GM/200 ML RTUINJ IV SCH (09:33)
[2017-10-29] MEDS ORDERED: LACTULOSE SYRUP 20 GM/30 ML UDCUP PO SCH (10:00)
[2017-10-29] MEDS ORDERED: METRONIDAZOLE 500 MG/NS RTU 500 MG/100 ML RTUPB IV SCH (12:00)
[2017-10-29] MEDS: VANCOMYCIN HCL INJ 500 MG VIAL PO SCH ×3 (13:10→23:58)
[2017-10-29] MEDS: METRONIDAZOLE 500 MG/NS RTU 500 MG/100 ML RTUPB IV SCH ×2 (17:18→23:58)
[2017-10-29] MEDS: LIDOCAINE 5% OINTMENT 35.44 GM TP PRN (17:20)
--- NOTE | 2017-10-29 17:43 | PDOC PROGRESS REPORT ---
Subjective Progress Note for:: 10/29/17 Subjective:: VANITA ALMARAZ is a 42 y.o. M with ETOH liver disease who was admitted to [facility] on 10/25/2017 for suspected hepatorenal syndrome vs. prerenal azotemia. Since admission, the patient has undergone a paracentesis, in which 5L was drained from his abdomen. He was experiencing profound diarrhea, which ended up testing (+) positive for C.Diff. Additionally, a steam pipe fitter at [facility] was consulted - they do not recommend transfer and believe that the patient is suffering from prerenal ARF, not hepatorenal syndrome. Nephrology was consulted, they do not recommend HD at this time. Patient was seen this morning on rounds following an argument with his . The patient initially stated he wanted to go home and stop his medical treatment. He expressed an interest in hospice care, and stated that he had talked to someone at an unknown hospice company to set up services in his home. His wants him to continue medical treatment in order to get well enough to leave [facility] and follow up with a liver specialist in [place]. Either the patient nor his understood that hospice was typically reserved for patients who had a life expectancy of approximately 6 months. They also did not understand that the purpose of hospice is comfort care. They were both under the impression that the patient would continue to receive medical care at home from a hospice nurse. When there misunderstandings were clarified, they both stated that the wished for the patient to continue to pursue medical treatment. At this time, they have no interest in pursuing comfort care. Upon assessment, the patient is resting comfortably in bed. He is awake, alert and oriented x3. He is able to answer all questions appropriately without pause. The patient denies abdominal pain, nausea or vomiting. He endorses generalized weakness and states he feels depressed because he is confined to his room. The patient also endorses multiple episodes of liquid diarrhea, he oftentimes unable to make it to the bathroom so he uses the bedside commode. + Scleral icterus. + Jaundiced. The patient appears very thin, but his abdomen is very distended. Non-tender. +bowel sounds. Plan is to continue daily albumin, expand antibiotic coverage for c.diff, and initiate IVF for prerenal ARF. Reason For Visit: ACUTE RENAL FAILURE,ASCITES Physical Exam Vital Signs: Temp Pulse Resp BP Pulse Ox 98.6 F 88 20 117/81 96 10/29/17 16:40 10/29/17 16:40 10/29/17 16:40 10/29/17 16:40 10/29/17 16:40 Intake & Output 10/28/17 10/29/17 10/30/17 06:59 06:59 06:59 Intake Total 500 532 Output Total 500 650 Balance 0 -118 Weight 73.8 kg 73.2 kg General appearance: PRESENT: thin Eye exam: PRESENT: scleral icterus Mouth exam: PRESENT: moist Neck exam: PRESENT: full ROM Respiratory exam: PRESENT: clear to auscultation cinthia, symmetrical, unlabored Cardiovascular exam: PRESENT: +S1, +S2 Pulses: PRESENT: normal radial pulses, normal dorsalis pedis pul GI/Abdominal exam: PRESENT: ascites, distended, normal bowel sounds, soft. ABSENT: guarding, mass, tenderness Rectal exam: PRESENT: deferred Extremities exam: PRESENT: full ROM Musculoskeletal exam: PRESENT: ambulatory, full ROM Neurological exam: PRESENT: alert, awake, oriented to person, oriented to place , oriented to time, oriented to situation Psychiatric exam: PRESENT: appropriate affect Skin exam: PRESENT: dry, intact, jaundice, warm Results Laboratory Results: 10/29/17 05:58 10/29/17 05:58 10/28/17 10/29/17 10/29/17 18:25 05:58 05:58 WBC 9.3 RBC 2.14 L Hgb 8.3 L Hct 23.2 L MCV 109 H MCH 38.9 H MCHC 35.8 RDW 13.0 Plt Count 169 Sodium 136.9 L Potassium 3.4 L Chloride 104 Carbon Dioxide 21 L Anion Gap 12 BUN 26 H Creatinine 3.98 H Est GFR ( Amer) 20 L Est GFR (Non-Af Amer) 16 L Glucose 95 Calcium 8.8 Phosphorus 3.7 Magnesium 1.8 Total Bilirubin 5.2 H AST 44 ALT 27 Alkaline Phosphatase 61 Ammonia Total Protein 6.2 L Albumin 3.2 L Stool for White Cells NO WBCs SEEN 10/29/17 05:58 WBC RBC Hgb Hct MCV MCH MCHC RDW Plt Count Sodium Potassium Chloride Carbon Dioxide Anion Gap BUN Creatinine Est GFR ( Amer) Est GFR (Non-Af Amer) Glucose Calcium Phosphorus Magnesium Total Bilirubin AST ALT Alkaline Phosphatase Ammonia 21.9 Total Protein Albumin Stool for White Cells 10/26/17 09:30 Ascities Fluid Gram Stain - Final 10/26/17 09:30 Ascities Fluid Body Fluid Culture - Final NO AEROBIC OR ANAEROBIC ORGANISMS RECOVERED Impressions: Abdomen Ultrasound 10/25/17 12:12 IMPRESSION: Moderate ascites. Chest X-Ray 10/25/17 12:13 IMPRESSION: Bandlike atelectasis just above the right lung base. Trace pleural fluid in the posterior costophrenic sulci. Paracentesis Ultrasound 10/26/17 07:00 IMPRESSION: SUCCESSFUL ULTRASOUND GUIDED DIAGNOSTIC AND THERAPEUTIC PARACENTESIS. Status: Imported from PACS Assessment & Plan - Diagnosis (1) Alcoholic liver disease Is this a current diagnosis for this admission?: Yes Plan: Secondary to 20 year history of alcohol abuse. states the patient stop drinking approximately 8 weeks ago. Initial MELD score 34 -associated with >80% mortality Patient and aware of poor prognosis, wish to pursue outpatient specialist once discharged from [facility] Continue p.o. rifaximin (2) Acute renal failure Qualifiers: Acute renal failure type: unspecified Qualified Code(s): N17.9 - Acute kidney failure, unspecified Is this a current diagnosis for this admission?: Yes Plan: Likely prerenal ARF secondary to hypovolemia stemming from c.diff diarrhea Kidney function improving. Cr 3.8 today down from 5.0. Baseline creatinine 0.8 Nephrology consulted, Dr. Griffin does not recommend hemodialysis at this time. Continue IV albumin BID Initiate IVF challenge to evaluate for renal response. Will administer IVF bolus and monitor for subsequent urine output. Patient's remains somewhat oliguric, want to avoid volume overload with continuous IVF at this time. (3) Liver failure without hepatic coma Qualifiers: Liver failure chronicity: acute Qualified Code(s): K72.00 - Acute and subacute hepatic failure without coma Is this a current diagnosis for this admission?: Yes Plan: Secondary to extensive history of alcohol abuse Continue daily rifaximin No plan for diuretic treatment at this time due to ARF Plan for outpatient hepatology visit once discharged from [facility] (4) Nicotine dependence Is this a current diagnosis for this admission?: Yes Plan: Nicotine patch as needed (5) C. difficile diarrhea Is this a current diagnosis for this admission?: Yes Plan: endorses "weeks" of diarrhea prior to hospital admission Patient was placed on lactulose for liver failure, which exacerbated diarrhea Stool is positive for C. difficile Started on p.o. vancomycin and IV Flagyl (6) Infected tooth Is this a current diagnosis for this admission?: Yes Plan: Will need tooth extraction No oral surgery available Treat with antibiotics - currently on DAY 3 of augmentin - Time Time Spent with patient: 15-24 minutes Medications reviewed and adjusted accordingly: Yes Anticipated discharge: Home - Inpatient Certification Based on my medical assessment, after consideration of the patient's comorbidities, presenting symptoms, or acuity I expect that the services needed warrant INPATIENT care.: Yes I certify that my determination is in accordance with my understanding of Medicare's requirements for reasonable and necessary INPATIENT services [42 CFR 412.3e].: Yes Medical Necessity: Need for IV Antibiotics, Risk of Complication if Not Cared For in Hospital
[2017-10-29] MEDS ORDERED: NORMAL SALINE 500 ML IV ONE (19:15)
[2017-10-29] MEDS: TEMAZEPAM 7.5 MG CAPSULE PO SCH (21:23)
[2017-10-30] MEDS: METRONIDAZOLE 500 MG/NS RTU 500 MG/100 ML RTUPB IV SCH ×4 (05:55→23:40)
[2017-10-30] MEDS: VANCOMYCIN HCL INJ 500 MG VIAL PO SCH ×4 (05:55→23:41)
[2017-10-30 06:37] LABS: HEMATOCRIT 23.2 % (37.9-51.0); HEMOGLOBIN 8.2 g/dL (13.5-17.0); MEAN CORPUSCULAR HEMOGLOBIN 38.7 pg (27.0-33.4); MEAN CORPUSCULAR HGB CONC 35.5 g/dL (32.0-36.0); MEAN CORPUSCULAR VOLUME 109 fl (80-97); PLATELET COUNT 158 10^3/uL (150-450); RED BLOOD COUNT 2.13 10^6/uL (4.35-5.55); RED CELL DISTRIBUTION WIDTH 13.3 % (11.5-14.0); WHITE BLOOD COUNT 9.6 10^3/uL (4.0-10.5)
[2017-10-30 06:40] LABS: INTERNATIONAL RATION (INR) 1.73; PROTHROMBIN TIME 21.1 SEC (11.4-15.4)
[2017-10-30 07:41] LABS: ALANINE AMINOTRANSFERASE 26 U/L (21-72); ALBUMIN 2.9 g/dL (3.5-5.0); ALKALINE PHOSPHATASE 62 U/L (38-126); ANION GAP 11 (5-19); ASPARTATE AMINO TRANSFERASE 42 U/L (17-59); BILIRUBIN,DIRECT 3.1 mg/dL (0.0-0.4); BILIRUBIN,TOTAL 4.4 mg/dL (0.2-1.3); BLOOD UREA NITROGEN 22 mg/dL (7-20); CALCIUM 8.7 mg/dL (8.4-10.2); CARBON DIOXIDE 21 mmol/L (22-30); CHLORIDE 106 mmol/L (98-107); GLUCOSE 85 mg/dL (75-110); POTASSIUM 3.6 mmol/L (3.6-5.0); SODIUM 138.1 mmol/L (137-145); TOTAL PROTEIN 6.1 g/dL (6.3-8.2)
[2017-10-30] MEDS: AMOXICILLIN TR/POT CLAVULANATE 500-125 MG TAB PO SCH ×2 (10:00→23:40)
[2017-10-30] MEDS: LACTOBACILLUS ACIDOPHILUS 250 MG TAB PO SCH ×2 (10:00→18:52)
[2017-10-30] MEDS ORDERED: NORMAL SALINE 1000 ML 1,000 ML IV ONE (10:30)
[2017-10-30 17:03] LABS: ANION GAP 10 (5-19); BLOOD UREA NITROGEN 21 mg/dL (7-20); CALCIUM 8.5 mg/dL (8.4-10.2); CARBON DIOXIDE 17 mmol/L (22-30); CHLORIDE 108 mmol/L (98-107); GLUCOSE 94 mg/dL (75-110); POTASSIUM 3.7 mmol/L (3.6-5.0); SODIUM 135.3 mmol/L (137-145)
--- NOTE | 2017-10-30 17:15 | PDOC PROGRESS REPORT ---
Subjective Progress Note for:: 10/30/17 Subjective:: VANITA ALMARAZ is a 42 y.o. M with ETOH liver disease who was admitted to [facility] on 10/25/2017 for suspected hepatorenal syndrome vs. prerenal azotemia. Since admission, the patient has undergone a paracentesis, in which 5L was drained from his abdomen. He was experiencing profound diarrhea, which ended up testing (+) positive for C.Diff. Additionally, a safe expert at [facility] was consulted - they do not recommend transfer and believe that the patient is suffering from prerenal ARF, not hepatorenal syndrome. The patient was seen this morning on rounds. He is resting comfortably in bed. He is awake, alert and oriented x3. He is able to answer all questions appropriately without pause. The patient denies abdominal pain, nausea or vomiting. He endorses pain and irritation associated with his rowan catheter. Nursing staff reports the patient has had ~250mL liquid diarrhea today. + Scleral icterus. + Jaundiced. The patient appears very thin, but his abdomen is very distended. Non-tender. +bowel sounds. His creatinine is improving (3.98- >3.5->3.2) but he still remains relatively oliguric, making 200-300mL urine per shift. Plan is to continue daily albumin, IVF bolus challenge for prerenal ARF. Reason For Visit: ACUTE RENAL FAILURE,ASCITES Physical Exam Vital Signs: Temp Pulse Resp BP Pulse Ox 97.8 F 85 16 107/66 100 10/30/17 12:28 10/30/17 12:28 10/30/17 12:28 10/30/17 12:28 10/30/17 12:28 Intake & Output 10/29/17 10/30/17 10/31/17 06:59 06:59 06:59 Intake Total 532 1087 Output Total 650 500 Balance -118 587 Weight 73.2 kg 73.2 kg General appearance: PRESENT: thin Eye exam: PRESENT: scleral icterus Mouth exam: PRESENT: moist Teeth exam: PRESENT: poor dentation Neck exam: PRESENT: full ROM Respiratory exam: PRESENT: clear to auscultation cinthia, symmetrical, unlabored Cardiovascular exam: PRESENT: +S1, +S2 Pulses: PRESENT: normal radial pulses, normal dorsalis pedis pul GI/Abdominal exam: PRESENT: distended, normal bowel sounds, soft. ABSENT: guarding, rigid, tenderness Rectal exam: PRESENT: deferred Extremities exam: PRESENT: full ROM. ABSENT: joint swelling Musculoskeletal exam: PRESENT: ambulatory, full ROM Neurological exam: PRESENT: alert, awake, oriented to person, oriented to place , oriented to time, oriented to situation Psychiatric exam: PRESENT: appropriate affect Skin exam: PRESENT: dry, intact, jaundice, warm Results Laboratory Results: 10/30/17 05:54 10/30/17 05:54 10/30/17 10/30/17 05:54 05:54 WBC 9.6 RBC 2.13 L Hgb 8.2 L Hct 23.2 L MCV 109 H MCH 38.7 H MCHC 35.5 RDW 13.3 Plt Count 158 Sodium 138.1 Potassium 3.6 Chloride 106 Carbon Dioxide 21 L Anion Gap 11 BUN 22 H Creatinine 3.50 H Est GFR ( Amer) 23 L Est GFR (Non-Af Amer) 19 L Glucose 85 Calcium 8.7 Total Bilirubin 4.4 H AST 42 ALT 26 Alkaline Phosphatase 62 Total Protein 6.1 L Albumin 2.9 L 10/28/17 18:25 Stool - Stool - Final Impressions: Abdomen Ultrasound 10/25/17 12:12 IMPRESSION: Moderate ascites. Chest X-Ray 10/25/17 12:13 IMPRESSION: Bandlike atelectasis just above the right lung base. Trace pleural fluid in the posterior costophrenic sulci. Paracentesis Ultrasound 10/26/17 07:00 IMPRESSION: SUCCESSFUL ULTRASOUND GUIDED DIAGNOSTIC AND THERAPEUTIC PARACENTESIS. Status: Imported from PACS Assessment & Plan - Diagnosis (1) Alcoholic liver disease Is this a current diagnosis for this admission?: Yes Plan: Secondary to 20 year history of alcohol abuse. states the patient stop drinking approximately 8 weeks ago. INR 1.7 Tbili improved 4.4 (peak 8.1) AST and ALT are within normal range MELD score this morning is 30 -associated with >80% mortality Patient and aware of poor prognosis, wish to pursue outpatient specialist once discharged from [facility] Continue p.o. rifaximin (2) Acute renal failure Qualifiers: Acute renal failure type: unspecified Qualified Code(s): N17.9 - Acute kidney failure, unspecified Is this a current diagnosis for this admission?: Yes Plan: Likely prerenal ARF secondary to hypovolemia stemming from c.diff diarrhea Kidney function improving. Cr 3.2 today down from 3.8 yesterday Baseline creatinine 0.8 Nephrology consulted, Dr. Griffin does not recommend hemodialysis at this time until a clear treatment plan for liver failure is developed Continue IV albumin BID Patient's remains somewhat oliguric, only making 200-300mL UOP per shift. Initiated IVF challenge to evaluate for renal response. Bolused 1LIVF and urine output improved, as did creatinine. Placed on continuous IVF @ 100ml/hr (3) Liver failure without hepatic coma Qualifiers: Liver failure chronicity: acute Qualified Code(s): K72.00 - Acute and subacute hepatic failure without coma Is this a current diagnosis for this admission?: Yes Plan: Secondary to extensive history of alcohol abuse Continue daily rifaximin No plan for diuretic treatment at this time due to ARF Plan for outpatient hepatology visit once discharged from [facility] (4) Nicotine dependence Is this a current diagnosis for this admission?: Yes Plan: Nicotine patch as needed (5) C. difficile diarrhea Is this a current diagnosis for this admission?: Yes Plan: endorses "weeks" of diarrhea prior to hospital admission Patient was placed on lactulose for liver failure, which exacerbated diarrhea Stool is positive for C. difficile Continue p.o. vancomycin and IV Flagyl No leukocytosis, afebrile Patient reports only 3 episodes of diarrhea in 24 hours Nursing staff reports stool is still completely liquid (6) Infected tooth Is this a current diagnosis for this admission?: Yes Plan: Will need tooth extraction No oral surgery available Treat with antibiotics - currently on DAY 4 of 5 of augmentin (7) Full code status Is this a current diagnosis for this admission?: Yes Plan: Despite poor prognosis, patient and wish to pursue all medical treatment options. The patient had previously stated that he was interested in hospice, however the patient and his did not understand that hospice is typically reserved for patients with a life expectancy of 6 months. They were under the impression that they would be able to receive full medical treatment for his liver disease at home from the hospice nurse. When it was clarified that the patient would only be receiving comfort care measures if he pursued hospice, both he and his stated that they wanted to pursue medical treatment and they wanted the patient to remain a full code. - Time Time Spent with patient: 15-24 minutes Medications reviewed and adjusted accordingly: Yes Anticipated discharge: Home - Inpatient Certification Based on my medical assessment, after consideration of the patient's comorbidities, presenting symptoms, or acuity I expect that the services needed warrant INPATIENT care.: Yes I certify that my determination is in accordance with my understanding of Medicare's requirements for reasonable and necessary INPATIENT services [42 CFR 412.3e].: Yes Medical Necessity: Need for IV Antibiotics, Risk of Complication if Not Cared For in Hospital - Plan Summary Plan Summary: CONTINUE DAILY ALBUMIN. CONTINUE ANTIBIOTICS FOR C DIFF. CLOSELY MONITOR I&O.
[2017-10-30] MEDS: NORMAL SALINE 1000 ML 1,000 ML IV PRN (18:52)
[2017-10-30] MEDS: TEMAZEPAM 7.5 MG CAPSULE PO SCH (23:40)
[2017-10-31] MEDS: VANCOMYCIN HCL INJ 500 MG VIAL PO SCH ×4 (06:01→23:08)
[2017-10-31] MEDS: METRONIDAZOLE 500 MG/NS RTU 500 MG/100 ML RTUPB IV SCH ×4 (06:01→23:09)
[2017-10-31] MEDS: AMOXICILLIN TR/POT CLAVULANATE 500-125 MG TAB PO SCH ×2 (11:12→23:08)
[2017-10-31] MEDS: LACTOBACILLUS ACIDOPHILUS 250 MG TAB PO SCH ×2 (11:12→17:46)
[2017-10-31 11:55] LABS: ABSOLUTE BASOPHILS # (AUTO) 0.1 10^3/uL (0.0-0.2); ABSOLUTE EOSINOPHILS # (AUTO) 0.4 10^3/uL (0.0-0.6); ABSOLUTE LYMPHOCYTES (AUTO) 1.3 10^3/uL (0.5-4.7); ABSOLUTE MONOCYTES (AUTO) 1.1 10^3/uL (0.1-1.4); ABSOLUTE NEUT (AUTO) 5.2 10^3/uL (1.7-8.2); BASOPHILS % (AUTO) 1.1 % (0-2); EOSINOPHILS % (AUTO) 5.3 % (0-6); HEMATOCRIT 25.4 % (37.9-51.0); LYMPHOCYTES % (AUTO) 15.6 % (13-45); MEAN CORPUSCULAR HEMOGLOBIN 38.7 pg (27.0-33.4); MEAN CORPUSCULAR HGB CONC 35.6 g/dL (32.0-36.0); MEAN CORPUSCULAR VOLUME 109 fl (80-97); MONOCYTES % (AUTO) 13.1 % (3-13); PLATELET COUNT 160 10^3/uL (150-450); RED BLOOD COUNT 2.33 10^6/uL (4.35-5.55); RED CELL DISTRIBUTION WIDTH 13.3 % (11.5-14.0); SEGMENTED NEUTROPHILS % (AUTO) 64.9 % (42-78); TOTAL CELLS COUNTED % (AUTO) 100 %; WHITE BLOOD COUNT 8.1 10^3/uL (4.0-10.5)
[2017-10-31 12:14] LABS: ALANINE AMINOTRANSFERASE 27 U/L (21-72); ALBUMIN 2.9 g/dL (3.5-5.0); ALKALINE PHOSPHATASE 59 U/L (38-126); ANION GAP 13 (5-19); ASPARTATE AMINO TRANSFERASE 54 U/L (17-59); BILIRUBIN,DIRECT 3.1 mg/dL (0.0-0.4); BILIRUBIN,TOTAL 4.3 mg/dL (0.2-1.3); BLOOD UREA NITROGEN 18 mg/dL (7-20); CALCIUM 8.6 mg/dL (8.4-10.2); CARBON DIOXIDE 17 mmol/L (22-30); CHLORIDE 110 mmol/L (98-107); GLUCOSE 95 mg/dL (75-110); POTASSIUM 3.7 mmol/L (3.6-5.0); SODIUM 139.7 mmol/L (137-145); TOTAL PROTEIN 6.2 g/dL (6.3-8.2)
--- NOTE | 2017-10-31 17:47 | PDOC PROGRESS REPORT ---
<GUERASHARON A - Last Filed: 10/31/17 17:19> Subjective Progress Note for:: 10/31/17 Subjective:: VANITA ALMARAZ is a 42 y.o. M with ETOH liver disease who was admitted to [facility] on 10/25/2017 for suspected hepatorenal syndrome vs. prerenal azotemia. Since admission, the patient has undergone a paracentesis, in which 5L was drained from his abdomen. He was experiencing profound diarrhea, which ended up testing (+) positive for C.Diff. Additionally, a dispensing operator at [facility] was consulted - they do not recommend transfer and believe that the patient is suffering from prerenal ARF, not hepatorenal syndrome. The patient was seen this morning on rounds. He is resting comfortably in bed. He is awake, alert and oriented x3. He is able to answer all questions appropriately without pause. The patient denies abdominal pain, nausea or vomiting. Nursing staff reports the patient has had 2 episodes of liquid diarrhea today, and 1-2 overnight. +Scleral icterus. + Jaundiced. The patient appears very thin, but his abdomen is very distended. Non-tender. +bowel sounds. His creatinine is improving (5.9->3.0) and urine output has improved with continuous IVF (~500mL urine last 12h). Reason For Visit: ACUTE RENAL FAILURE,ASCITES Physical Exam Vital Signs: Temp Pulse Resp BP Pulse Ox 98.1 F 81 12 98/57 L 100 10/31/17 12:26 10/31/17 12:26 10/31/17 12:26 10/31/17 12:26 10/31/17 12:26 Intake & Output 10/30/17 10/31/17 11/01/17 06:59 06:59 06:59 Intake Total 1087 1940 1178 Output Total 500 575 Balance 587 1365 1178 Weight 73.2 kg 72.4 kg General appearance: PRESENT: thin Eye exam: PRESENT: PERRLA, scleral icterus Mouth exam: PRESENT: moist Teeth exam: PRESENT: poor dentation Neck exam: PRESENT: full ROM Respiratory exam: PRESENT: clear to auscultation cinthia, symmetrical, unlabored Cardiovascular exam: PRESENT: +S1, +S2 Pulses: PRESENT: normal radial pulses, normal dorsalis pedis pul Vascular exam: PRESENT: normal capillary refill GI/Abdominal exam: PRESENT: distended, normal bowel sounds, soft. ABSENT: firm , guarding, tenderness Rectal exam: PRESENT: deferred Gentrourinary exam: PRESENT: indwelling catheter Extremities exam: PRESENT: full ROM. ABSENT: pedal edema Musculoskeletal exam: PRESENT: ambulatory, full ROM Neurological exam: PRESENT: alert, awake, oriented to person, oriented to place , oriented to time, oriented to situation Psychiatric exam: PRESENT: appropriate affect Skin exam: PRESENT: jaundice Results Laboratory Results: 10/31/17 11:30 10/31/17 11:30 10/31/17 10/31/17 11:30 11:30 WBC 8.1 RBC 2.33 L Hgb 9.0 L Hct 25.4 L MCV 109 H MCH 38.7 H MCHC 35.6 RDW 13.3 Plt Count 160 Seg Neutrophils % 64.9 Lymphocytes % 15.6 Monocytes % 13.1 H Eosinophils % 5.3 Basophils % 1.1 Absolute Neutrophils 5.2 Absolute Lymphocytes 1.3 Absolute Monocytes 1.1 Absolute Eosinophils 0.4 Absolute Basophils 0.1 Sodium 139.7 Potassium 3.7 Chloride 110 H Carbon Dioxide 17 L Anion Gap 13 BUN 18 Creatinine 3.05 H Est GFR ( Amer) 27 L Est GFR (Non-Af Amer) 22 L Glucose 95 Calcium 8.6 Total Bilirubin 4.3 H AST 54 ALT 27 Alkaline Phosphatase 59 Total Protein 6.2 L Albumin 2.9 L 10/28/17 18:25 Stool - Stool - Final 10/28/17 18:25 Stool - Stool Stool Culture - Final NO SALMONELLA, SHIGELLA, CAMPYLOBACTER, OR E.COLI 0157 RECOVERED. NEGATIVE FOR SHIGA TOXINS 1&2. Impressions: Abdomen Ultrasound 10/25/17 12:12 IMPRESSION: Moderate ascites. Chest X-Ray 10/25/17 12:13 IMPRESSION: Bandlike atelectasis just above the right lung base. Trace pleural fluid in the posterior costophrenic sulci. Paracentesis Ultrasound 10/26/17 07:00 IMPRESSION: SUCCESSFUL ULTRASOUND GUIDED DIAGNOSTIC AND THERAPEUTIC PARACENTESIS. Status: Imported from PACS Assessment & Plan - Diagnosis (1) Alcoholic liver disease Is this a current diagnosis for this admission?: Yes Plan: Secondary to 20 year history of alcohol abuse. states the patient stop drinking approximately 8 weeks ago. INR 1.7 Tbili improved 4.3 (peak 8.1) AST and ALT are within normal range MELD score this morning is 30 -associated with >80% mortality Patient and aware of poor prognosis, wish to pursue outpatient specialist once discharged from [facility] Continue p.o. rifaximin (2) Acute renal failure QualifierTitle: Acute renal failure type: unspecified Qualified Code(s): N17.9 - Acute kidney failure, unspecified Is this a current diagnosis for this admission?: Yes Plan: Likely prerenal ARF secondary to hypovolemia stemming from c.diff diarrhea Kidney function improving. Cr 3.0 today down from 3.2 yesterday Baseline creatinine 0.8 Nephrology consulted, Dr. Griffin does not recommend hemodialysis at this time. She states that since the patient's urine output has improved, he no longer needs to be followed by inpatient nephrology. Recommends outpatient nephrology following discharge. Continue IVF and BID albumin. Oliguria improving, up to ~500ML during previous shift (3) Liver failure without hepatic coma QualifierTitle: Liver failure chronicity: acute Qualified Code(s): K72.00 - Acute and subacute hepatic failure without coma Is this a current diagnosis for this admission?: Yes Plan: Secondary to extensive history of alcohol abuse Continue daily rifaximin No plan for diuretic treatment at this time due to ARF Plan for outpatient hepatology visit once discharged from [facility] (4) Nicotine dependence Is this a current diagnosis for this admission?: Yes Plan: Nicotine patch as needed (5) C. difficile diarrhea Is this a current diagnosis for this admission?: Yes Plan: endorses "weeks" of diarrhea prior to hospital admission, this was not conveyed to medical staff at time of admission Patient was placed on lactulose for liver failure, which exacerbated diarrhea Stool is positive for C. difficile Severe CDI characterized by elevated serum Creatinine (>1.5) Day 4 of p.o. vancomycin Day 3 of IV Flagyl - added to enhance treatment regimen because nursing staff reported 5-7 episodes of liquid stool, oftentimes incontinent. No HYPOtension or evidence of toxic megacolon. No leukocytosis, afebrile Patient reports only 3-4 episodes of diarrhea in 24 hours Nursing staff reports stool is still completely liquid Consulted ID regarding length of treatment for severe CDI (6) Infected tooth Is this a current diagnosis for this admission?: Yes Plan: Will need tooth extraction No oral surgery available 5 day course of Augmentin q12 PO - last day 11/02 (7) Full code status Is this a current diagnosis for this admission?: Yes Plan: Despite poor prognosis, patient and wish to pursue all medical treatment options. The patient had previously stated that he was interested in hospice, however the patient and his did not understand that hospice is typically reserved for patients with a life expectancy of 6 months. They were under the impression that they would be able to receive full medical treatment for his liver disease at home from the hospice nurse. When it was clarified that the patient would only be receiving comfort care measures if he pursued hospice, both he and his stated that they wanted to pursue medical treatment and they wanted the patient to remain a full code. - Time Time Spent with patient: 15-24 minutes Medications reviewed and adjusted accordingly: Yes Anticipated discharge: Home - Inpatient Certification Based on my medical assessment, after consideration of the patient's comorbidities, presenting symptoms, or acuity I expect that the services needed warrant INPATIENT care.: Yes I certify that my determination is in accordance with my understanding of Medicare's requirements for reasonable and necessary INPATIENT services [42 CFR 412.3e].: Yes Medical Necessity: Risk of Complication if Not Cared For in Hospital - Plan Summary Plan Summary: CONTINUE IV ANTIBIOTICS. CONTINUE IVF. CONSULT ID REGARDING LENGTH OF ANTIBIOTIC TREATMENT. <SHANELLE FERNANDEZ M - Last Filed: 10/31/17 18:01> Subjective Reason For Visit: ACUTE RENAL FAILURE,ASCITES Physical Exam Vital Signs: Temp Pulse Resp BP Pulse Ox 97.9 F 80 12 119/77 98 10/31/17 16:05 10/31/17 16:05 10/31/17 16:05 10/31/17 16:05 10/31/17 16:05 Intake & Output 10/30/17 10/31/17 11/01/17 06:59 06:59 06:59 Intake Total 1087 1940 1650 Output Total 500 575 Balance 587 1365 1650 Weight 73.2 kg 72.4 kg Results Laboratory Results: 10/31/17 11:30 10/31/17 11:30 10/31/17 10/31/17 11:30 11:30 WBC 8.1 RBC 2.33 L Hgb 9.0 L Hct 25.4 L MCV 109 H MCH 38.7 H MCHC 35.6 RDW 13.3 Plt Count 160 Seg Neutrophils % 64.9 Lymphocytes % 15.6 Monocytes % 13.1 H Eosinophils % 5.3 Basophils % 1.1 Absolute Neutrophils 5.2 Absolute Lymphocytes 1.3 Absolute Monocytes 1.1 Absolute Eosinophils 0.4 Absolute Basophils 0.1 Sodium 139.7 Potassium 3.7 Chloride 110 H Carbon Dioxide 17 L Anion Gap 13 BUN 18 Creatinine 3.05 H Est GFR ( Amer) 27 L Est GFR (Non-Af Amer) 22 L Glucose 95 Calcium 8.6 Total Bilirubin 4.3 H AST 54 ALT 27 Alkaline Phosphatase 59 Total Protein 6.2 L Albumin 2.9 L 10/28/17 18:25 Stool - Stool - Final 10/28/17 18:25 Stool - Stool Stool Culture - Final NO SALMONELLA, SHIGELLA, CAMPYLOBACTER, OR E.COLI 0157 RECOVERED. NEGATIVE FOR SHIGA TOXINS 1&2. Impressions: Abdomen Ultrasound 10/25/17 12:12 IMPRESSION: Moderate ascites. Chest X-Ray 10/25/17 12:13 IMPRESSION: Bandlike atelectasis just above the right lung base. Trace pleural fluid in the posterior costophrenic sulci. Paracentesis Ultrasound 10/26/17 07:00 IMPRESSION: SUCCESSFUL ULTRASOUND GUIDED DIAGNOSTIC AND THERAPEUTIC PARACENTESIS. Provider Note Provider Note: I have discussed the patient in detail with AMARILIS Nieves. I am in agreement with her evaluation and plan.
[2017-10-31] MEDS ORDERED: ALBUMIN HUMAN 12.5 GM/50 ML RTUINJ IV SCH (18:00)
--- NOTE | 2017-10-31 18:59 | PDOC PROGRESS REPORT ---
Subjective Progress Note for:: 10/31/17 Subjective:: When I entered the room the patient is telling me that he wanted to go home. He is almost tearful telling telling me that staying in the hospital is status making him quit all the treatments and that he could no longer sustained staying in the hospital. He said he wanted to just go home, breath some fresh air and relaxing the porch. He tells me is going to follow what every treatment is going to be prescribed to him once he goes home he just does not want to stay here any longer. He tells me that his is preparing his home for him with a place to stay in the living room, cleaning the house, and prepared foods for him. He did confirm that he would go for treatment but if he stays here in the hospital any longer he may just want to quit. He tells me that he only had one episode of almost semi-formed stool today. He does not have the appetite for the kind of fluid is being served here. However he denies any nausea nor vomiting or any other complaints otherwise. His urine output is still not a lot but he also does not show any evidence of hypervolemia except for the bursitis anyway. Reason For Visit: ACUTE RENAL FAILURE,ASCITES Physical Exam Vital Signs: Temp Pulse Resp BP Pulse Ox 97.9 F 80 12 119/77 98 10/31/17 16:05 10/31/17 16:05 10/31/17 16:05 10/31/17 16:05 10/31/17 16:05 Intake & Output 10/30/17 10/31/17 11/01/17 06:59 06:59 06:59 Intake Total 1087 1940 1650 Output Total 500 575 Balance 587 1365 1650 Weight 73.2 kg 72.4 kg Exam: General appearance: PRESENT: no acute distress, cooperative, well-developed, well-nourished Head exam: PRESENT: atraumatic, normocephalic Eye exam: PRESENT: conjunctiva pale, PERRLA. Positive scleral icterus Neck exam: ABSENT: JVD Respiratory exam: PRESENT: Diminished breath sounds. Positive rhonchi and occasional wheezes ABSENT: crackles, rales, unlabored Cardiovascular exam: PRESENT: Regular rate rhythm -+S1, +S2. ABSENT: diastolic murmur, systolic murmur GI/Abdominal exam: PRESENT: normal bowel sounds, soft. Positive ascites ABSENT : guarding, mass, tenderness Extremities exam: ABSENT: No edema Neurological exam: PRESENT: alert, awake, oriented to person, place and time. Skin exam: PRESENT: dry, warm, jaundiced Results Laboratory Results: 10/31/17 11:30 10/31/17 11:30 10/31/17 10/31/17 11:30 11:30 WBC 8.1 RBC 2.33 L Hgb 9.0 L Hct 25.4 L MCV 109 H MCH 38.7 H MCHC 35.6 RDW 13.3 Plt Count 160 Seg Neutrophils % 64.9 Lymphocytes % 15.6 Monocytes % 13.1 H Eosinophils % 5.3 Basophils % 1.1 Absolute Neutrophils 5.2 Absolute Lymphocytes 1.3 Absolute Monocytes 1.1 Absolute Eosinophils 0.4 Absolute Basophils 0.1 Sodium 139.7 Potassium 3.7 Chloride 110 H Carbon Dioxide 17 L Anion Gap 13 BUN 18 Creatinine 3.05 H Est GFR ( Amer) 27 L Est GFR (Non-Af Amer) 22 L Glucose 95 Calcium 8.6 Total Bilirubin 4.3 H AST 54 ALT 27 Alkaline Phosphatase 59 Total Protein 6.2 L Albumin 2.9 L 10/28/17 18:25 Stool - Stool - Final 10/28/17 18:25 Stool - Stool Stool Culture - Final NO SALMONELLA, SHIGELLA, CAMPYLOBACTER, OR E.COLI 0157 RECOVERED. NEGATIVE FOR SHIGA TOXINS 1&2. Impressions: Abdomen Ultrasound 10/25/17 12:12 IMPRESSION: Moderate ascites. Chest X-Ray 10/25/17 12:13 IMPRESSION: Bandlike atelectasis just above the right lung base. Trace pleural fluid in the posterior costophrenic sulci. Paracentesis Ultrasound 10/26/17 07:00 IMPRESSION: SUCCESSFUL ULTRASOUND GUIDED DIAGNOSTIC AND THERAPEUTIC PARACENTESIS. Assessment & Plan - Diagnosis (1) Acute kidney injury Is this a current diagnosis for this admission?: Yes Plan: Patient continues to have relative oliguria but no evidence of hypervolemia. Given that the patient's kidney function has been very slowly improving throughout the last few days I think the patient has prerenal azotemia superimposed with still possibly hepatorenal syndrome. Patient does not warrant any renal replacement therapy at this time since patient's kidney function is improving. Advised patient to keep himself adequately hydrated and follow low-salt diet if he is going to go home. Also advised him to follow-up as an outpatient. No further diagnostics or therapeutic intervention from nephrology standpoint at this time. Since the patient's kidney function is slowly and continuously improving I think the patient can actually go home from my standpoint. (2) Alcoholic liver disease Is this a current diagnosis for this admission?: Yes Plan: Needs to follow-up with her maintenance parts technician. (3) Ascites Qualifiers: Ascites type: due to alcoholic hepatitis Qualified Code(s): K70.11 - Alcoholic hepatitis with ascites Is this a current diagnosis for this admission?: Yes (4) C. difficile diarrhea Is this a current diagnosis for this admission?: Yes Plan: On Flagyl and vancomycin. Improving. (5) Hypoalbuminemia Is this a current diagnosis for this admission?: Yes Plan: On IV albumin infusions. (6) Coagulopathy Is this a current diagnosis for this admission?: Yes (7) Hyponatremia Is this a current diagnosis for this admission?: Yes Plan: Resolved. (8) Depression Is this a current diagnosis for this admission?: Yes Plan: Patient declines any antidepressant at this time. I think overall the patient would be better off to see if he goes home very soon. - Notes Notes: From nephrology standpoint patient may go home early this will be tomorrow. Patient would need to follow-up with me the next 2-3 weeks with repeat kidney function. - Time Time with patient: Greater than 35 minutes
[2017-10-31] MEDS: TEMAZEPAM 7.5 MG CAPSULE PO SCH (23:08)
[2017-10-31] MEDS: NORMAL SALINE 1000 ML 1,000 ML IV PRN (23:09)
[2017-10-31] MEDS: ALBUMIN HUMAN 50 GM/200 ML RTUINJ IV SCH (23:09)
[2017-11-01] MEDS: METRONIDAZOLE 500 MG/NS RTU 500 MG/100 ML RTUPB IV SCH (05:50)
[2017-11-01] MEDS: VANCOMYCIN HCL INJ 500 MG VIAL PO SCH ×3 (05:50→14:39)
[2017-11-01 07:05] LABS: HEMATOCRIT 23.7 % (37.9-51.0); HEMOGLOBIN 8.2 g/dL (13.5-17.0); MEAN CORPUSCULAR HEMOGLOBIN 37.9 pg (27.0-33.4); MEAN CORPUSCULAR HGB CONC 34.4 g/dL (32.0-36.0); MEAN CORPUSCULAR VOLUME 110 fl (80-97); PLATELET COUNT 131 10^3/uL (150-450); RED BLOOD COUNT 2.15 10^6/uL (4.35-5.55); RED CELL DISTRIBUTION WIDTH 13.5 % (11.5-14.0); WHITE BLOOD COUNT 7.2 10^3/uL (4.0-10.5)
[2017-11-01 07:14] LABS: PROTHROMBIN TIME 25.5 SEC (11.4-15.4)
[2017-11-01 07:19] LABS: ALANINE AMINOTRANSFERASE 29 U/L (21-72); ALBUMIN 3.1 g/dL (3.5-5.0); ALKALINE PHOSPHATASE 56 U/L (38-126); ANION GAP 11 (5-19); ASPARTATE AMINO TRANSFERASE 49 U/L (17-59); BILIRUBIN,DIRECT 2.7 mg/dL (0.0-0.4); BILIRUBIN,TOTAL 4.1 mg/dL (0.2-1.3); BLOOD UREA NITROGEN 15 mg/dL (7-20); CALCIUM 8.6 mg/dL (8.4-10.2); CARBON DIOXIDE 16 mmol/L (22-30); CHLORIDE 113 mmol/L (98-107); GLUCOSE 88 mg/dL (75-110); POTASSIUM 3.6 mmol/L (3.6-5.0); SODIUM 139.6 mmol/L (137-145); TOTAL PROTEIN 6.1 g/dL (6.3-8.2)
[2017-11-01] MEDS ORDERED: CHLORHEXIDINE GLUCONATE 0.12% ORAL RINSE 15 ML UDC MM SCH (10:00)
[2017-11-01] MEDS: LACTOBACILLUS ACIDOPHILUS 250 MG TAB PO SCH (10:38)
[2017-11-01] MEDS: ALBUMIN HUMAN 50 GM/200 ML RTUINJ IV SCH (10:38)
[2017-11-01 13:45] VITALS: BP 126/64
[2017-11-01] MEDS ORDERED: AMOXICILLIN TRIHYDRATE 500 MG CAPSULE PO SCH (14:00)
--- NOTE | 2017-11-01 17:13 | PDOC DISCHARGE SUMMARY ---
<SHARON LENZ - Last Filed: 11/01/17 17:13> General - Admit/Disc Date/PCP Admission Date/Primary Care Provider: 10/25/17 15:51 Discharge Date: 11/01/17 - Discharge Diagnosis (1) Acute kidney injury Is this a current diagnosis for this admission?: Yes (2) Ascites Is this a current diagnosis for this admission?: Yes (3) C. difficile diarrhea Is this a current diagnosis for this admission?: Yes (4) Coagulopathy Is this a current diagnosis for this admission?: Yes (5) Depression Is this a current diagnosis for this admission?: Yes (6) Hyperphosphatemia Is this a current diagnosis for this admission?: Yes (7) Hypoalbuminemia Is this a current diagnosis for this admission?: Yes (8) Hypokalemia Is this a current diagnosis for this admission?: Yes (9) Hyponatremia Is this a current diagnosis for this admission?: Yes (10) Infected tooth Is this a current diagnosis for this admission?: Yes (11) Nicotine dependence Is this a current diagnosis for this admission?: Yes - Additional Information Resuscitation Status: Full Code Discharge Diet: As Tolerated, Regular Discharge Activity: Activity As Tolerated Prescriptions: Amoxicillin Trihydrate [Amoxil 875 mg Tablet] 1 tab PO BID #12 tablet Vancomycin HCl [Vancocin HCl] 250 mg PO QID #24 capsule Home Medications: Amoxicillin Trihydrate [Amoxil 875 mg Tablet] 1 tab PO BID #12 tablet 11/01/17 Chlorhexidine Gluconate [Periogard 0.12% Oral Rinse 15 ml] 15 ml MM BID udc Lactobacillus Acidophilus [Bacid 250 mg Tablet] 500 mg PO BID tab 11/01/17 Vancomycin HCl [Vancocin HCl] 250 mg PO QID #24 capsule 11/01/17 History of Present Illness History of Present Illness: VANITA ALMARAZ is a 42 year old male with past medical history of alcohol dependence-quit 2 months ago, tobacco use, hypertension and alcohol withdrawal seizures He quit drinking approximately 2 months ago, and reports that he has developed progressively worsening abdominal distention since then. Over the past few days he experienced generalized weakness progressively worsening dyspnea on exertion and worsening abdominal distention with generalized aches and pains and insomnia. The patient reports taking Aleve PM to help him sleep at night. He had been on lisinopril which he quit taking a couple of weeks ago since it was making him sick. His urine has been dark. He denies any hematemesis or melena. In the emergency room he was found to have acute renal failure with a creatinine of 5.9, hyperbilirubinemia, bilirubin of 8.1 and abdominal distention due to ascites. He was treated with IV fluids, was given a dose of potassium for hypokalemia and referred for admission. Patient was admitted to the telemetry floor. Dr. Griffin, corn lab technician, saw the patient in consult. Patient was noted to have severe diarrhea. He later states he been having diarrhea for over 2 weeks at home. Stool culture was found to be positive for Clostridium difficile diarrhea. He was started on oral vancomycin along with IV Flagyl. Hospital Course Hospital Course: Patient was admitted to the telemetry floor. Dr. Grififn, corn lab technician, saw the patient in consult. Patient was noted to have severe diarrhea. He later states he been having diarrhea for over 2 weeks at home. Stool culture was found to be positive for Clostridium difficile diarrhea. He was started on oral vancomycin along with IV Flagyl. He was continued on IV hydration. He was followed by Dr. Griffin during his hospitalization. His creatinine was down to 3.1 on 10/31. She felt at that time he could be discharged home today and followed by her in 1 week as an outpatient with a repeat BMP prior. He also underwent ultrasound-guided paracentesis by interventional radiology. 5 L of ascites was removed. Patient's abdominal distention improved as well. His case was discussed with Dr. Zazueta, newspaper writer, at [facility]. They declined the patient in transfer. We will gladly follow him as an outpatient once he is discharged. He is not a candidate for transplant due to the fact he is just stopped drinking the last 2 months. He was also noted to have an abscessed upper, right lateral incisor. Initially he was started on Augmentin which made his diarrhea worse. This was switched to amoxicillin with improvement of his symptoms. He will follow-up with the [facility] in 2 days for medications and referrals to a dentist and [facility] hepatology clinic Physical Exam Vital Signs: Temp Pulse Resp BP Pulse Ox 98.2 F 79 12 126/64 H 97 11/01/17 13:41 11/01/17 13:41 11/01/17 13:41 11/01/17 13:41 11/01/17 13:41 Intake & Output 10/31/17 11/01/17 11/02/17 06:59 06:59 06:59 Intake Total 1940 2950 Output Total 575 400 Balance 1365 2550 Weight 72.4 kg General appearance: PRESENT: no acute distress, thin - Severely jaundiced, chronically ill-appearing Head exam: PRESENT: atraumatic, normocephalic Eye exam: PRESENT: PERRLA, scleral icterus Ear exam: PRESENT: normal external ear exam Mouth exam: PRESENT: moist, tongue midline Teeth exam: PRESENT: dental caries, poor dentation Neck exam: ABSENT: carotid bruit, JVD, lymphadenopathy, thyromegaly Respiratory exam: PRESENT: clear to auscultation cinthia. ABSENT: rales, rhonchi, wheezes Cardiovascular exam: PRESENT: RRR. ABSENT: diastolic murmur, rubs, systolic murmur Pulses: PRESENT: normal carotid pulses, normal radial pulses Vascular exam: PRESENT: normal capillary refill GI/Abdominal exam: PRESENT: ascites, distended, soft Rectal exam: PRESENT: deferred Extremities exam: PRESENT: +1 edema - Bilateral pedal pretibial Musculoskeletal exam: PRESENT: ambulatory Neurological exam: PRESENT: alert, awake, oriented to person, oriented to place , oriented to time, oriented to situation, CN II-XII grossly intact. ABSENT: motor sensory deficit Psychiatric exam: PRESENT: anxious Skin exam: PRESENT: dry, jaundice, pallor, warm Results Laboratory Results: 11/01/17 06:05 11/01/17 06:05 11/01/17 11/01/17 06:05 06:05 WBC 7.2 RBC 2.15 L Hgb 8.2 L Hct 23.7 L MCV 110 H MCH 37.9 H MCHC 34.4 RDW 13.5 Plt Count 131 L Sodium 139.6 Potassium 3.6 Chloride 113 H Carbon Dioxide 16 L Anion Gap 11 BUN 15 Creatinine 2.88 H Est GFR ( Amer) 29 L Est GFR (Non-Af Amer) 24 L Glucose 88 Calcium 8.6 Total Bilirubin 4.1 H AST 49 ALT 29 Alkaline Phosphatase 56 Total Protein 6.1 L Albumin 3.1 L 10/28/17 18:25 Stool - Stool - Final 10/28/17 18:25 Stool - Stool Stool Culture - Final NO SALMONELLA, SHIGELLA, CAMPYLOBACTER, OR E.COLI 0157 RECOVERED. NEGATIVE FOR SHIGA TOXINS 1&2. Impressions: Abdomen Ultrasound 10/25/17 12:12 IMPRESSION: Moderate ascites. Chest X-Ray 10/25/17 12:13 IMPRESSION: Bandlike atelectasis just above the right lung base. Trace pleural fluid in the posterior costophrenic sulci. Paracentesis Ultrasound 10/26/17 07:00 IMPRESSION: SUCCESSFUL ULTRASOUND GUIDED DIAGNOSTIC AND THERAPEUTIC PARACENTESIS. Qualifiers - * PATIENT BEING DISCHARGED WITH ANY OF THE FOLLOWING DIAGNOSIS: No Plan Discharge Plan: Home with . He will follow up in [facility] in the next 3 days Time Spent: Less than 30 Minutes <SHANELLE FERNANDEZ - Last Filed: 11/01/17 18:15> General - Admit/Disc Date/PCP Admission Date/Primary Care Provider: 10/25/17 15:51 History of Present Illness History of Present Illness: VANITA ALMARAZ is a 42 year old male Physical Exam Vital Signs: Temp Pulse Resp BP Pulse Ox 98.2 F 79 12 126/64 H 97 11/01/17 13:41 11/01/17 13:41 11/01/17 13:41 11/01/17 13:41 11/01/17 13:41 Intake & Output 10/31/17 11/01/17 11/02/17 06:59 06:59 06:59 Intake Total 1940 2950 Output Total 575 400 Balance 1365 2550 Weight 72.4 kg Results Laboratory Results: 11/01/17 06:05 11/01/17 06:05 11/01/17 11/01/17 06:05 06:05 WBC 7.2 RBC 2.15 L Hgb 8.2 L Hct 23.7 L MCV 110 H MCH 37.9 H MCHC 34.4 RDW 13.5 Plt Count 131 L Sodium 139.6 Potassium 3.6 Chloride 113 H Carbon Dioxide 16 L Anion Gap 11 BUN 15 Creatinine 2.88 H Est GFR ( Amer) 29 L Est GFR (Non-Af Amer) 24 L Glucose 88 Calcium 8.6 Total Bilirubin 4.1 H AST 49 ALT 29 Alkaline Phosphatase 56 Total Protein 6.1 L Albumin 3.1 L Impressions: Abdomen Ultrasound 10/25/17 12:12 IMPRESSION: Moderate ascites. Chest X-Ray 10/25/17 12:13 IMPRESSION: Bandlike atelectasis just above the right lung base. Trace pleural fluid in the posterior costophrenic sulci. Paracentesis Ultrasound 10/26/17 07:00 IMPRESSION: SUCCESSFUL ULTRASOUND GUIDED DIAGNOSTIC AND THERAPEUTIC PARACENTESIS. Provider Note Provider Note: I have discussed the patient in detail with AMARILIS Lenz. I am in agreement with her evaluation and plan.
== END 2017-11-01 15:07 | disposition home or self-care (01) | DRG 432 ==
LOC: ER 10:53 → EH 15:51 → 4N 19:14
PROVIDERS: ADMIT Internal Medicine; ATTEND Internal Medicine
PROC: 0W9G3ZX Drainage of Peritoneal Cavity, Percutaneous Approach, Diagnostic (ICD-10-PCS; principal; 2017-10-26)
PROC: 3E0F73Z Introduction of Anti-inflammatory into Respiratory Tract, Via Natural or Artificial Opening (ICD-10-PCS; 2017-10-26)
DX: K70.11 Alcoholic hepatitis with ascites (principal); K72.00 Acute and subacute hepatic failure without coma; N17.9 Acute kidney failure, unspecified; A04.72 Enterocolitis due to Clostridium difficile, not specified as recurrent; E87.1 Hypo-osmolality and hyponatremia; F32.9 Major depressive disorder, single episode, unspecified; E83.39 Other disorders of phosphorus metabolism; E88.09 Other disorders of plasma-protein metabolism, not elsewhere classified; E87.6 Hypokalemia; K04.7 Periapical abscess without sinus; F17.210 Nicotine dependence, cigarettes, uncomplicated; I10 Essential (primary) hypertension; F10.20 Alcohol dependence, uncomplicated; Y90.0 Blood alcohol level of less than 20 mg/100 ml; K70.9 Alcoholic liver disease, unspecified; G47.00 Insomnia, unspecified; R63.4 Abnormal weight loss; Z68.20 Body mass index [BMI] 20.0-20.9, adult; Z82.3 Family history of stroke; Z82.49 Family history of ischemic heart disease and other diseases of the circulatory system
CPT/HCPCS: 36415; 49083; 71046; 76700; 80048; 80053; 80074; 80307; 81001; 82140; 82570; 83605; 83690; 83735; 84100; 84300; 85025; 85027; 85610; 85730; 87045; 87070; 87075; 87077; 87205; 87493; 89050; 89055; 93976; 96360; 99285; A9270-GY; J1644; J3370; J3490; J7030; J7040; J7120; P9047

== ENCOUNTER → 2017-11-14 | Outpatient (CLI) | payer OTHER ==
[2017-11-14 12:54] LABS: ABSOLUTE BASOPHILS # (AUTO) 0.1 10^3/uL (0.0-0.2); ABSOLUTE EOSINOPHILS # (AUTO) 0.3 10^3/uL (0.0-0.6); ABSOLUTE LYMPHOCYTES (AUTO) 1.6 10^3/uL (0.5-4.7); ABSOLUTE MONOCYTES (AUTO) 0.5 10^3/uL (0.1-1.4); ABSOLUTE NEUT (AUTO) 3.5 10^3/uL (1.7-8.2); BASOPHILS % (AUTO) 1.5 % (0-2); HEMOGLOBIN 10.3 g/dL (13.5-17.0); LYMPHOCYTES % (AUTO) 26.2 % (13-45); MEAN CORPUSCULAR HEMOGLOBIN 36.9 pg (27.0-33.4); MEAN CORPUSCULAR HGB CONC 34.4 g/dL (32.0-36.0); MEAN CORPUSCULAR VOLUME 107 fl (80-97); MONOCYTES % (AUTO) 9.1 % (3-13); PLATELET COUNT 163 10^3/uL (150-450); RED CELL DISTRIBUTION WIDTH 14.6 % (11.5-14.0); SEGMENTED NEUTROPHILS % (AUTO) 58.2 % (42-78); TOTAL CELLS COUNTED % (AUTO) 100 %
[2017-11-14 13:02] LABS: INTERNATIONAL RATION (INR) 1.35; PROTHROMBIN TIME 17.4 SEC (11.4-15.4)
[2017-11-14 13:03] LABS: PARTIAL THROMBOPLASTIN TIME 42.5 SEC (23.5-35.8)
[2017-11-14 13:13] LABS: ALANINE AMINOTRANSFERASE 27 U/L (21-72); ALBUMIN 3.7 g/dL (3.5-5.0); ALKALINE PHOSPHATASE 91 U/L (38-126); ANION GAP 13 (5-19); ASPARTATE AMINO TRANSFERASE 49 U/L (17-59); BILIRUBIN,DIRECT 2.2 mg/dL (0.0-0.4); BILIRUBIN,TOTAL 3.2 mg/dL (0.2-1.3); BLOOD UREA NITROGEN 13 mg/dL (7-20); CALCIUM 9.3 mg/dL (8.4-10.2); CARBON DIOXIDE 14 mmol/L (22-30); CHLORIDE 116 mmol/L (98-107); GLUCOSE 102 mg/dL (75-110); POTASSIUM 4.6 mmol/L (3.6-5.0); SODIUM 142.6 mmol/L (137-145); TOTAL PROTEIN 7.5 g/dL (6.3-8.2)
== END ==
LOC: CCC 12:20
DX: R18.8 Other ascites (principal)
CPT/HCPCS: 36415; 80053; 82140; 83036; 85025; 85610; 85730

== ENCOUNTER → 2017-12-01 | Outpatient (CLI) | payer OTHER ==
[2017-12-01 10:36] LABS: INTERNATIONAL RATION (INR) 1.26; PROTHROMBIN TIME 16.5 SEC (11.4-15.4)
[2017-12-01 10:37] LABS: PARTIAL THROMBOPLASTIN TIME 37.6 SEC (23.5-35.8)
[2017-12-01 11:18] LABS: ALANINE AMINOTRANSFERASE 26 U/L (21-72); ALBUMIN 3.8 g/dL (3.5-5.0); ALKALINE PHOSPHATASE 105 U/L (38-126); ANION GAP 14 (5-19); ASPARTATE AMINO TRANSFERASE 42 U/L (17-59); BILIRUBIN,DIRECT 1.6 mg/dL (0.0-0.4); BILIRUBIN,TOTAL 2.5 mg/dL (0.2-1.3); BLOOD UREA NITROGEN 10 mg/dL (7-20); CALCIUM 9.5 mg/dL (8.4-10.2); CARBON DIOXIDE 18 mmol/L (22-30); CHLORIDE 109 mmol/L (98-107); GLUCOSE 110 mg/dL (75-110); POTASSIUM 4.9 mmol/L (3.6-5.0); SODIUM 140.7 mmol/L (137-145); TOTAL PROTEIN 7.8 g/dL (6.3-8.2)
== END ==
LOC: OD 09:26
DX: K75.9 Inflammatory liver disease, unspecified (principal)
CPT/HCPCS: 36415; 80053; 82140; 85610; 85730

== ENCOUNTER → 2018-06-21 | Outpatient (CLI) | payer OTHER ==
[2018-06-21 16:19] LABS: ABSOLUTE BASOPHILS # (AUTO) 0.1 10^3/uL (0.0-0.2); ABSOLUTE EOSINOPHILS # (AUTO) 0.1 10^3/uL (0.0-0.6); ABSOLUTE LYMPHOCYTES (AUTO) 1.6 10^3/uL (0.5-4.7); ABSOLUTE MONOCYTES (AUTO) 0.5 10^3/uL (0.1-1.4); ABSOLUTE NEUT (AUTO) 3.8 10^3/uL (1.7-8.2); BASOPHILS % (AUTO) 1.9 % (0-2); EOSINOPHILS % (AUTO) 1.9 % (0-6); HEMATOCRIT 37.3 % (37.9-51.0); HEMOGLOBIN 13.1 g/dL (13.5-17.0); LYMPHOCYTES % (AUTO) 26.4 % (13-45); MEAN CORPUSCULAR HEMOGLOBIN 35.6 pg (27.0-33.4); MEAN CORPUSCULAR HGB CONC 35.2 g/dL (32.0-36.0); MEAN CORPUSCULAR VOLUME 101 fl (80-97); MONOCYTES % (AUTO) 7.5 % (3-13); PLATELET COUNT 156 10^3/uL (150-450); RED BLOOD COUNT 3.69 10^6/uL (4.35-5.55); RED CELL DISTRIBUTION WIDTH 14.3 % (11.5-14.0); SEGMENTED NEUTROPHILS % (AUTO) 62.3 % (42-78); TOTAL CELLS COUNTED % (AUTO) 100 %
[2018-06-21 16:39] LABS: ALANINE AMINOTRANSFERASE 29 U/L (21-72); ALBUMIN 4.6 g/dL (3.5-5.0); ALKALINE PHOSPHATASE 143 U/L (38-126); ANION GAP 11 (5-19); ASPARTATE AMINO TRANSFERASE 49 U/L (17-59); BILIRUBIN,DIRECT 0.4 mg/dL (0.0-0.4); BILIRUBIN,TOTAL 0.7 mg/dL (0.2-1.3); BLOOD UREA NITROGEN 10 mg/dL (7-20); CALCIUM 9.2 mg/dL (8.4-10.2); CARBON DIOXIDE 25 mmol/L (22-30); CHLORIDE 106 mmol/L (98-107); GLUCOSE 111 mg/dL (75-110); POTASSIUM 3.9 mmol/L (3.6-5.0); SODIUM 142.3 mmol/L (137-145); TOTAL PROTEIN 8.3 g/dL (6.3-8.2)
== END ==
LOC: CCC 14:48
DX: D64.9 Anemia, unspecified (principal)
CPT/HCPCS: 36415; 80053; 84443; 85025

== ENCOUNTER 2019-04-23 07:49 | Emergency (ER) | payer SELFPAY ==
[2019-04-23] MEDS ORDERED: OXYCODONE-ACETAMINOPHEN 5-325 MG TABLET PO ONE ×2 (08:50→10:41)
[2019-04-23] MEDS ORDERED: KETOROLAC TROMETHAMINE 60 MG/2 ML SDV IM ONE (08:50)
--- NOTE | 2019-04-23 08:52 | ER Document Report ---
ED General - General Chief Complaint: Fall Injury Stated Complaint: FALL/BACK PAIN,RIGHT HAND NUMBNESS Primary Care Provider: [facility] [NO LOCAL MD] - Follow up as needed RIKA SWARTZ III, MD [NO LOCAL MD] - Follow up in 1 week Notes: Patient with chronic pancreatitis presents with a back pain/back injury, upper back between his shoulder blades after falling against a tool shelf 2 days ago. Hurt the first day that hurt worse the second day then this morning when he stood up it "seized" him and he fell back to the bed. No numbness or tingling in the legs. Transient right hand tingling this morning is now better. Denies neck pain headache LOC. No blood thinners. No radiation down legs. TRAVEL OUTSIDE OF THE [place] IN LAST 30 DAYS: No - Related Data Allergies/Adverse Reactions: No Known Allergies Allergy (Verified 05/26/17 13:05) Past Medical History - Social History Smoking Status: Unknown if Ever Smoked Family History: CVA Patient has suicidal ideation: No Patient has homicidal ideation: No - Past Medical History Cardiac Medical History: Reports: Hx Hypertension Neurological Medical History: Reports: Hx Seizures - due to hyponatremia Renal/ Medical History: Denies: Hx Peritoneal Dialysis Past Surgical History: Reports: Hx Orthopedic Surgery - Shoulder surgery with placement of some plates secondary to injury Review of Systems - Review of Systems Notes: REVIEW OF SYSTEMS GEN: Denies fever, chills, weight loss ENT: Denies sore throat, nasal discharge, ear pain EYES: Denies blurry vision, eye pain, discharge CV: Denies chest pain, palpitations, edema RESP: Denies cough, shortness of breath, wheezing GI: Denies abdominal pain, nausea, vomiting, diarrhea MSK: Back pain/injury SKIN: Denies rash, skin lesions LYMPH: Denies swollen glands/lymph nodes NEURO: Transient resolved right hand tingling PSYCH: Denies depression, suicidal or homicidal ideation PHYSICAL EXAMINATION General: Very thin , no acute distress, well-nourished Head: Atraumatic, normocephalic ENT: Mouth normal, oropharynx moist, no exudates or tonsillar enlargement Eyes: Conjunctiva normal, pupils equal, lids normal Neck: No JVD, supple, no guarding CVS: Normal rate, regular rhythm, no murmurs Resp: No resp distress, equal and normal breath sounds bilaterally GI: Nondistended, soft, no tenderness to palpation, no rebound or guarding Ext: No deformities, no edema, normal range of motion in upper and lower ext Back: Lower cervical/upper thoracic midline back tenderness without step-off or deformity. Right paraspinous posterior chest/back tenderness around mid thoracic Skin: No rash, warm Lymphatic: No lymphadeopathy noted Neuro: Awake, alert. Face symmetric. GCS 15. Normal strength and sensation in all 4 extremities. Physical Exam - Vital signs Vitals: Temp Pulse Resp BP Pulse Ox 97.8 F 122 H 18 185/129 H 100 04/23/19 07:53 04/23/19 07:53 04/23/19 07:53 04/23/19 07:53 04/23/19 07:53 Course - Re-evaluation Re-evalutation: 04/23/19 12:35 44-year male presents as directed back to the back neurologically intact but has midline tenderness in the upper thoracic spine. He does not have any other apparent injuries. CT C-spine negative. CT T-spine shows isolated nondisplaced T2 spinous process fracture. I discussed the case with Dr. Reyes from n [facility] at [facility] who says no follow-up needed and topical/systemic pain control. Think this is reasonable. Chest x-ray is negative. I have discussed with the patient there likely diagnosis, aftercare plan, follow-up plans and my usual and customary return precautions. They verbalized understanding of this. - Vital Signs Vital signs: Temp Pulse Resp BP Pulse Ox 97.8 F 122 H 26 H 147/138 H 99 04/23/19 07:53 04/23/19 07:53 04/23/19 10:43 04/23/19 10:43 04/23/19 10:43 - Diagnostic Test Radiology reviewed: Pending, Image reviewed, Reports reviewed Discharge - Discharge Clinical Impression: Fracture of spinous process of thoracic vertebra Qualifiers: Encounter type: initial encounter Fracture type: closed Qualified Code(s): S22.008A - Other fracture of unspecified thoracic vertebra, initial encounter for closed fracture Condition: Good Disposition: HOME, SELF-CARE Instructions: Compression Fracture of the Spine ([facility]) Additional Instructions: Please follow-up with the spine doctors within [address] Swartz information is attached. Prescriptions: Ibuprofen [Motrin 600 mg Tablet] 600 mg PO Q8HP PRN #30 tablet PRN Reason: Methocarbamol [Robaxin 500 mg Tablet] 500 mg PO BID #10 tablet [facility]: [facility] [NO LOCAL MD] - Follow up as needed RIKA SWARTZ III, MD [NO LOCAL MD] - Follow up in 1 week
[2019-04-23] MEDS ORDERED: KETOROLAC TROMETHAMINE INJ/PF 30 MG/1 ML SDV IV ONE (09:30)
--- NOTE | 2019-04-23 09:46 | RADIOLOGY REPORT (SQ) ---
EXAM DESCRIPTION: CHEST 2 VIEWS COMPLETED DATE/TIME: 04/23/2019 9:31 am REASON FOR STUDY: fall back pn COMPARISON: 10/25/2017 EXAM PARAMETERS: NUMBER OF VIEWS: two views TECHNIQUE: Digital Frontal and Lateral radiographic views of the chest acquired. RADIATION DOSE: NA LIMITATIONS: none FINDINGS: LUNGS AND PLEURA: No opacities, masses or pneumothorax. No pleural effusion. Biapical bul lous change and scarring. Hyperinflation. MEDIASTINUM AND HILAR STRUCTURES: No masses or contour abnormalities. HEART AND VASCULAR STRUCTURES: Heart normal size. No evidence for failure. BONES: No acute findings. Plate and screw fixation hardware along the right midclavicle. HARDWARE: None in the chest. OTHER: No other significant finding. IMPRESSION: Emphysematous change with hyperinflation. No other evidence of acute intrathoracic proc ess. TECHNICAL DOCUMENTATION: JOB ID: [id number] [employer]- All Rights Reserved Reading location - IP/workstation name: [email or web address]
--- NOTE | 2019-04-23 09:48 | RADIOLOGY REPORT (SQ) ---
EXAM DESCRIPTION: CT CERVICAL SPINE WITHOUT COMPLETED DATE/TIME: 04/23/2019 9:18 am REASON FOR STUDY: fall back pn COMPARISON: None. TECHNIQUE: Axial images acquired through the cervical spine without intravenous contrast. Images re viewed with lung, soft tissue and bone windows. Reconstructed coronal and sagittal MPR images review ed. Images stored on PACS. All CT scanners at this facility use dose modulation, iterative reconstruction, and/or weight based d osing when appropriate to reduce radiation dose to as low as reasonably achievable (ALARA). [facility]: Dose Right [facility]: CareDose [facility]: Dose Right [facility]: Teradose 4D [facility]: [place] RADIATION DOSE: CT Rad equipment meets quality standard of care and radiation dose reduction techniq ues were employed. CTDIvol: 12.0 mGy. DLP: 270 mGy-cm. mGy. LIMITATIONS: None. FINDINGS: ALIGNMENT: Anatomic. MINERALIZATION: Normal. VERTEBRAL BODIES: No fractures or dislocation. DISCS: No significant disc disease. FACETS, LATERAL MASSES, POSTERIOR ELEMENTS: No fractures. No dislocation. No acute findings. HARDWARE: None in the spine. VISUALIZED RIBS: No fractures. LUNG APICES AND SOFT TISSUES: Bullous emphysematous change bilaterally, left greater than right. Sca ttered carotid atherosclerosis. OTHER: No other significant finding. IMPRESSION: No evidence of acute bony abnormality of the cervical spine. TECHNICAL DOCUMENTATION: JOB ID: [id number] Quality ID # [id number]: Final reports with documentation of one or more dose reduction techniques (e.g., Au tomated exposure control, adjustment of the mA and/or kV according to patient size, use of iterative reconstruction technique) 2010 [employer]- All Rights Reserved Reading location - IP/workstation name: [email or web address]
--- NOTE | 2019-04-23 09:58 | RADIOLOGY REPORT (SQ) ---
EXAM DESCRIPTION: CT THORACIC SPINE WITHOUT COMPLETED DATE/TIME: 04/23/2019 9:18 am REASON FOR STUDY: fall back pn COMPARISON: None. TECHNIQUE: Axial images acquired through the thoracic spine without intravenous contrast. Images re viewed with lung, soft tissue and bone windows. Reconstructed coronal and sagittal MPR images review ed. Images stored on PACS. All CT scanners at this facility use dose modulation, iterative reconstruction, and/or weight based d osing when appropriate to reduce radiation dose to as low as reasonably achievable (ALARA). [facility]: Dose Right [facility]: CareDose [facility]: Dose Right [facility]: Teradose 4D [facility]: PEAK-IT RADIATION DOSE: CT Rad equipment meets quality standard of care and radiation dose reduction techniq ues were employed. CTDIvol: 6.0 mGy. DLP: 249 mGy-cm. mGy. LIMITATIONS: None. FINDINGS: VISUALIZED LUNGS: No acute opacities. No pneumothorax. SOFT TISSUES: No soft tissue swelling. No masses. VERTEBRAL BODIES: Minimally displaced fracture of the T2 spinous process (series 301, image 16). No additional fractures identified. No dislocation. DISCS: Mild multilevel disc height loss. No osseous spinal canal or neural foraminal narrowing. ALIGNMENT: Normal. TRANSVERSE PROCESSES, POSTERIOR ELEMENTS: No facet dislocation. T2 spinous process fracture as above . HARDWARE: None in the spine. VISUALIZED RIBS: No fractures. OTHER: Mild dilation of the ascending aorta measuring up to 3.6 cm. Upper lobe emphysematous change with left upper lobe bullous emphysema. IMPRESSION: 1. Minimally displaced fracture of the T2 spinous process. No additional evidence of a cute bony abnormality of the thoracic spine. 2. Mild dilation of the ascending aorta measuring up to 3.6 cm. 3. Emphysematous change. TECHNICAL DOCUMENTATION: JOB ID: [id number] Quality ID # [id number]: Final reports with documentation of one or more dose reduction techniques (e.g., Au tomated exposure control, adjustment of the mA and/or kV according to patient size, use of iterative reconstruction technique) 2010 [employer]- All Rights Reserved Reading location - IP/workstation name: [email or web address]
[2019-04-23 10:48] VITALS: BP 147/138
== END 2019-04-23 10:53 | disposition home or self-care (01) ==
LOC: ER 07:49
DX: S12.101A Unspecified nondisplaced fracture of second cervical vertebra, initial encounter for closed fracture (principal); W22.03XA Walked into furniture, initial encounter; I10 Essential (primary) hypertension
CPT/HCPCS: 99284; 96374; 71046; 72125; 72128; J1885

== ENCOUNTER 2019-06-15 11:02 | Emergency (ER) | payer SELFPAY ==
[2019-06-15] MEDS ORDERED: IPRATROPIUM/ALBUTEROL 0.5-2.5 MG/3 ML AMPUL NEB ONE (11:24)
[2019-06-15] MEDS ORDERED: IBUPROFEN 600 MG TABLET PO ONE (11:25)
[2019-06-15] MEDS ORDERED: NORMAL SALINE 1000 ML 1,000 ML IV ONE (11:25)
--- NOTE | 2019-06-15 11:26 | ER Document Report ---
ED Medical Screen (RME) - General Chief Complaint: Flu Symptoms Stated Complaint: FEVER Time Seen by Provider: 06/15/19 11:20 Notes: HPI: 44-year-old male with cirrhosis and hypertension history presenting for worsening cough over the last 3 days with shortness of breath, fever up to 103 today. Does not of abdominal pain nausea vomiting. Does report a moderate headache. Did not get a flu shot this year I have greeted and performed a rapid initial assessment of this patient. A comprehensive ED assessment and evaluation of the patient, analysis of test results and completion of the medical decision making process will be conducted by additional ED providers PHYSICAL EXAMINATION: GENERAL: Well-appearing, well-nourished and in moderate acute distress. HEAD: Atraumatic, normocephalic. EYES: sclera anicteric, conjunctiva are normal. ENT: Moist mucous membranes. NECK: Normal range of motion LUNGS: Normal work of breathing, clear to auscultation but slightly decreased in the bases HEART: 2+ radial pulses bilaterally, regular rate and rhythm ABD: limited by positioning for exam in triage. EXTREMITIES: no pitting or edema. No cyanosis. NEUROLOGICAL: No focal neurological deficits. Moves all extremities spontaneously and on command. PSYCH: Normal mood, normal affect. SKIN: Warm, Dry, normal turgor, no rashes or lesions noted. TRAVEL OUTSIDE OF THE [place] IN LAST 30 DAYS: No - Related Data Allergies/Adverse Reactions: No Known Allergies Allergy (Verified 05/26/17 13:05) Past Medical History - Social History Chew tobacco use (# tins/day): No Frequency of alcohol use: Occasional Drug Abuse: None - Past Medical History Cardiac Medical History: Reports: Hx Hypertension Neurological Medical History: Reports: Hx Seizures - due to hyponatremia Renal/ Medical History: Denies: Hx Peritoneal Dialysis Past Surgical History: Reports: Hx Orthopedic Surgery - Shoulder surgery with placement of some plates secondary to injury Physical Exam - Vital signs Vitals: Temp Pulse Resp BP Pulse Ox 99.2 F 127 H 18 155/103 H 94 06/15/19 11:15 06/15/19 11:15 06/15/19 11:15 06/15/19 11:15 06/15/19 11:15 Course - Vital Signs Vital signs: Temp Pulse Resp BP Pulse Ox 99.2 F 127 H 18 155/103 H 94 06/15/19 11:15 06/15/19 11:15 06/15/19 11:15 06/15/19 11:15 06/15/19 11:15
[2019-06-15 12:07] LABS: ABSOLUTE LYMPHOCYTES (AUTO) 0.3 10^3/uL (0.5-4.7); ABSOLUTE MONOCYTES (AUTO) 0.6 10^3/uL (0.1-1.4); ABSOLUTE NEUT (AUTO) 4.1 10^3/uL (1.7-8.2); BASOPHILS % (AUTO) 0.6 % (0-2); HEMATOCRIT 33.5 % (37.9-51.0); HEMOGLOBIN 11.8 g/dL (13.5-17.0); LYMPHOCYTES % (AUTO) 6.8 % (13-45); MEAN CORPUSCULAR HEMOGLOBIN 36.1 pg (27.0-33.4); MEAN CORPUSCULAR HGB CONC 35.1 g/dL (32.0-36.0); MEAN CORPUSCULAR VOLUME 103 fl (80-97); MONOCYTES % (AUTO) 11.3 % (3-13); PLATELET COUNT 167 10^3/uL (150-450); RED BLOOD COUNT 3.26 10^6/uL (4.35-5.55); RED CELL DISTRIBUTION WIDTH 14.8 % (11.5-14.0); SEGMENTED NEUTROPHILS % (AUTO) 81.3 % (42-78); TOTAL CELLS COUNTED % (AUTO) 100 %; WHITE BLOOD COUNT 5.1 10^3/uL (4.0-10.5)
[2019-06-15 12:22] LABS: A TYPE INFLUENZA AG NEGATIVE (NEGATIVE); B INFLUENZA AG NEGATIVE (NEGATIVE)
--- NOTE | 2019-06-15 12:25 | RADIOLOGY REPORT (SQ) ---
EXAM DESCRIPTION: CHEST 2 VIEWS COMPLETED DATE/TIME: 06/15/2019 12:03 pm REASON FOR STUDY: cough COMPARISON: 04/23/2019 EXAM PARAMETERS: NUMBER OF VIEWS: two views TECHNIQUE: Digital Frontal and Lateral radiographic views of the chest acquired. RADIATION DOSE: NA LIMITATIONS: none FINDINGS: LUNGS AND PLEURA: No opacities, masses or pneumothorax. No pleural effusion. Emphysematou s change. MEDIASTINUM AND HILAR STRUCTURES: No masses or contour abnormalities. HEART AND VASCULAR STRUCTURES: Heart normal size. No evidence for failure. BONES: No acute findings. HARDWARE: Right clavicular hardware. OTHER: No other significant finding. IMPRESSION: Emphysematous change without evidence of acute cardiopulmonary process. TECHNICAL DOCUMENTATION: JOB ID: [id number] 2010 [employer]- All Rights Reserved Reading location - IP/workstation name: [email or web address]
[2019-06-15 12:26] LABS: ALBUMIN 3.5 g/dL (3.5-5.0); ALKALINE PHOSPHATASE 164 U/L (38-126); ANION GAP 10 (5-19); ASPARTATE AMINO TRANSFERASE 30 U/L (17-59); BILIRUBIN,DIRECT 0.2 mg/dL (0.0-0.4); BILIRUBIN,TOTAL 0.6 mg/dL (0.2-1.3); BLOOD UREA NITROGEN 13 mg/dL (7-20); CALCIUM 8.4 mg/dL (8.4-10.2); CARBON DIOXIDE 24 mmol/L (22-30); CHLORIDE 98 mmol/L (98-107); GLUCOSE 101 mg/dL (75-110); TOTAL PROTEIN 6.8 g/dL (6.3-8.2)
--- NOTE | 2019-06-15 14:13 | ER Document Report ---
ED General - General Chief Complaint: Flu Symptoms Stated Complaint: FEVER Time Seen by Provider: 06/15/19 11:20 Mode of Arrival: Ambulatory Information source: Patient Notes: This 44-year-old male with history of cirrhosis hypertension C. difficile presents to the emergency department with complaints of cough shortness of breath for the past 3 days. Reports fever this morning of 103. Also complains of headache. Reports he vomited other day but none today. Reports that he has had had a decreased appetite but he has been eating drinking voiding bowel movement as usual. He does admit to having a little bit of diarrhea yesterday. TRAVEL OUTSIDE OF THE [place] IN LAST 30 DAYS: No - HPI Onset: Other Quality of pain: Achy Associated symptoms: Body/muscle aches, Vomiting - a few days ago Exacerbated by: Denies Relieved by: Denies Similar symptoms previously: No Recently seen / treated by doctor: No - Related Data Allergies/Adverse Reactions: No Known Allergies Allergy (Verified 05/26/17 13:05) Past Medical History - General Information source: Patient - Social History Smoking Status: Current Every Day Smoker Cigarette use (# per day): Yes Chew tobacco use (# tins/day): No Frequency of alcohol use: Occasional Drug Abuse: None Occupation: none Lives with: Family Family History: CVA Patient has suicidal ideation: No Patient has homicidal ideation: No - Past Medical History Cardiac Medical History: Reports: Hx Hypertension Neurological Medical History: Reports: Hx Seizures - due to hyponatremia Renal/ Medical History: Denies: Hx Peritoneal Dialysis Past Surgical History: Reports: Hx Orthopedic Surgery - Shoulder surgery with placement of some plates secondary to injury Review of Systems - Review of Systems Notes: Review HPI for review of systems., All other systems negative Physical Exam - Vital signs Vitals: Temp Pulse Resp BP Pulse Ox 99.2 F 127 H 18 155/103 H 94 06/15/19 11:15 06/15/19 11:15 06/15/19 11:15 06/15/19 11:15 06/15/19 11:15 - General General appearance: Alert In distress: None - HEENT Head: Normocephalic Eyes: Normal Conjunctiva: Normal Extraocular movements intact: Yes Eyelashes: Normal Pupils: PERRL Ears: Normal External canal: Normal Tympanic membrane: Normal Mucous membranes: Moist Pharynx: Normal Neck: Normal, Supple. No: Lymphadenopathy - Respiratory Respiratory status: No respiratory distress Chest status: Nontender Breath sounds: Rhonchi Chest palpation: Normal - Cardiovascular Rhythm: Regular Heart sounds: Normal auscultation Murmur: No - Abdominal Inspection: Normal Distension: No distension Bowel sounds: Normal Tenderness: Nontender Organomegaly: No organomegaly - Back Back: Normal - Extremities General upper extremity: Normal ROM General lower extremity: Normal ROM - Neurological Neuro grossly intact: Yes Cognition: Normal Orientation: AAOx4 [place] Coma Scale Eye Opening: Spontaneous [place] Coma Scale Verbal: Oriented [place] Coma Scale Motor: Obeys Commands [place] Coma Scale Total: 15 Speech: Normal - Psychological Associated symptoms: Normal affect, Normal mood - Skin Skin Temperature: Warm Skin Moisture: Dry Location of irregularity: Abdomen - Checkerboard pattern noted to patient's stomach. He reports he placed heating pad on his stomach and left it there for a long time. No open wounds or sores. No oozing. No erythema no warmth Course - Re-evaluation Re-evalutation: 06/15/19 15:13 44-year-old male presents emergency department with body aches for the past 3 days with cough. Reports fever earlier today denies vomiting diarrhea. Patient has history of hyponatremia has had that in the past. Influenza test negative. Labs unremarkable sodium 131.7. Patient reports he has been drinking a lot of water. He also received 1 L normal saline here in the emergency department. He was instructed on his sodium importance of monitoring it and follow-up with a primary care. UA noted with large amount of blood and bacteria +1. Denies pain with void denies back pain denies testicular pain. Patient was instructed on his chest x-ray emphysematous changes. He was instructed on the importance of quit smoking. He verbalized understanding to all instructions. He was given strict precautions to return for difficulty breathing concerns. Chest X-Ray 06/15/19 11:24 IMPRESSION: Emphysematous change without evidence of acute cardiopulmonary process. Laboratory 06/15/19 06/15/19 06/15/19 11:55 11:55 11:55 WBC 5.1 RBC 3.26 L Hgb 11.8 L Hct 33.5 L MCV 103 H MCH 36.1 H MCHC 35.1 RDW 14.8 H Plt Count 167 Lymph % (Auto) 6.8 L [place] % (Auto) 11.3 Eos % (Auto) 0.0 Baso % (Auto) 0.6 Absolute Neuts (auto) 4.1 Absolute Lymphs (auto) 0.3 L Absolute Monos (auto) 0.6 Absolute Eos (auto) 0.0 Absolute Basos (auto) 0.0 Seg Neutrophils % 81.3 H Sodium 131.7 L Potassium 4.0 Chloride 98 Carbon Dioxide 24 Anion Gap 10 BUN 13 Creatinine 1.33 H Est GFR ( Amer) > 60 Est GFR (MDRD) Non-Af 58 L Glucose 101 Calcium 8.4 Total Bilirubin 0.6 Direct Bilirubin 0.2 Neonat Total Bilirubin Not Reportable Neonat Direct Bilirubin Not Reportable Neonat Indirect Bili Not Reportable AST 30 ALT 16 Alkaline Phosphatase 164 H Total Protein 6.8 Albumin 3.5 Urine Color Urine Appearance Urine pH Ur Specific [place] Urine Protein Urine Glucose (UA) Urine Ketones Urine Blood Urine Nitrite Urine Bilirubin Urine Urobilinogen Ur Leukocyte Esterase Urine WBC (Auto) Urine RBC (Auto) U Hyaline Cast (Auto) Urine Bacteria (Auto) Squamous Epi Cells Auto Amorphous Sediment Auto Urine Mucus (Auto) Urine Ascorbic Acid Influenza A (Rapid) NEGATIVE Influenza B (Rapid) NEGATIVE 06/15/19 14:21 WBC RBC Hgb Hct MCV MCH MCHC RDW Plt Count Lymph % (Auto) [place] % (Auto) Eos % (Auto) Baso % (Auto) Absolute Neuts (auto) Absolute Lymphs (auto) Absolute Monos (auto) Absolute Eos (auto) Absolute Basos (auto) Seg Neutrophils % Sodium Potassium Chloride Carbon Dioxide Anion Gap BUN Creatinine Est GFR ( Amer) Est GFR (MDRD) Non-Af Glucose Calcium Total Bilirubin Direct Bilirubin Neonat Total Bilirubin Neonat Direct Bilirubin Neonat Indirect Bili AST ALT Alkaline Phosphatase Total Protein Albumin Urine Color YELLOW Urine Appearance CLEAR Urine pH 6.0 Ur Specific [place] 1.005 Urine Protein 100 H Urine Glucose (UA) NEGATIVE Urine Ketones NEGATIVE Urine Blood LARGE H Urine Nitrite NEGATIVE Urine Bilirubin NEGATIVE Urine Urobilinogen NEGATIVE Ur Leukocyte Esterase NEGATIVE Urine WBC (Auto) 3 Urine RBC (Auto) 75 U Hyaline Cast (Auto) 1 Urine Bacteria (Auto) 1+ Squamous Epi Cells Auto <1 Amorphous Sediment Auto TRACE Urine Mucus (Auto) RARE Urine Ascorbic Acid NEGATIVE Influenza A (Rapid) Influenza B (Rapid) 06/15/19 19:09 06/15/19 19:11 06/15/19 19:12 - Vital Signs Vital signs: Temp Pulse Resp BP Pulse Ox 98.4 F 89 18 145/91 H 96 06/15/19 15:31 06/15/19 15:31 06/15/19 11:15 06/15/19 15:31 06/15/19 15:31 - Laboratory Result Diagrams: 06/15/19 11:55 06/15/19 11:55 Laboratory results interpreted by me: 06/15/19 06/15/19 06/15/19 11:55 11:55 14:21 RBC 3.26 L Hgb 11.8 L Hct 33.5 L MCV 103 H MCH 36.1 H RDW 14.8 H Lymph % (Auto) 6.8 L Absolute Lymphs (auto) 0.3 L Seg Neutrophils % 81.3 H Sodium 131.7 L Creatinine 1.33 H Est GFR (MDRD) Non-Af 58 L Alkaline Phosphatase 164 H Urine Protein 100 H Urine Blood LARGE H - Diagnostic Test Radiology reviewed: Reports reviewed Discharge - Discharge Clinical Impression: Body aches, Cough, emphysema, Hyponatremia Fever Qualifiers: Fever type: unspecified Qualified Code(s): R50.9 - Fever, unspecified Condition: Stable Disposition: HOME, SELF-CARE Instructions: Acetaminophen, Bronchodilators ([facility]), Chronic Obstructive Lung Disease ([facility]), Hyponatremia ([facility]), Stop Smoking ([facility]), Steroid Medication Additional Instructions: *You have been evaluated for a cough, body aches, hyponatremia, emphysema *Your chest x-ray showed emphysema changes. Your flu test was negative. *Take medication as prescribed, use the inhaler as prescribed *Increase fluids, quit smoking *Monitor your temperature, take Tylenol as indicated *Follow up with a primary care provider within 1 week for recheck *Return to ED for increasing fever, cough, worsening condition, changes, needs Monitor your blood pressure. Your blood pressure was elevated today. This may be because you were anxious, in pain or because you need medication. It is important to follow up with your primary care provider for full evaluation. Prescriptions: Prednisone [Deltasone 10 mg Tablet] 10 mg PO ASDIR PRN #21 tablet PRN Reason: Forms: Elevated Blood Pressure, Smoking Cessation Education, Parent Work Note
[2019-06-15 14:42] LABS: AMORPHOUS SEDIMENT,URINE TRACE /HPF; APPEARANCE,URINE CLEAR; BILIRUBIN,URINE NEGATIVE (NEGATIVE); COLOR,URINE YELLOW; GLUCOSE, URINE NEGATIVE (NEGATIVE); KETONES,URINE NEGATIVE (NEGATIVE); LEUKOCYTE ESTERASE,URINE NEGATIVE (NEGATIVE); NITRITE,URINE NEGATIVE (NEGATIVE); PROTEIN,URINE 100 mg/dL (NEGATIVE); URINE SPECIFIC GRAVITY 1.005; UROBILINOGEN,URINE NEGATIVE mg/dL (<2.0)
[2019-06-15] MEDS ORDERED: ALBUTEROL SULFATE HFA (90 MCG/PUFF) 8 GM MDI IH ONE (15:14)
[2019-06-15 15:44] VITALS: BP 145/91
== END 2019-06-15 15:37 | disposition home or self-care (01) ==
LOC: ER 11:02
DX: J43.9 Emphysema, unspecified (principal); E87.1 Hypo-osmolality and hyponatremia; M79.10 Myalgia, unspecified site; R50.9 Fever, unspecified; R05 Cough; R11.10 Vomiting, unspecified; F17.210 Nicotine dependence, cigarettes, uncomplicated; I10 Essential (primary) hypertension
CPT/HCPCS: 94640; 99283; 96360; 96361; 36415; 85025; 80053; 81001; 87804; 71046; J7030; J7620; J3490

== ENCOUNTER 2019-10-23 07:57 | Emergency (ER) | payer SELFPAY ==
--- NOTE | 2019-10-23 09:07 | ER Document Report ---
ED General - General Chief Complaint: Rib Pain Stated Complaint: FLANK PAIN Time Seen by Provider: 10/23/19 09:07 TRAVEL OUTSIDE OF THE [place] IN LAST 30 DAYS: No - HPI Patient complains to provider of: RUQ, Right chest pain Notes: 10/10 sharp right upper quadrant pain with radiation to his right lower chest 8/10 sharp in nature denies all other associated symptoms. Nothing makes the pain better made worse with deep inspiration - Related Data Allergies/Adverse Reactions: No Known Allergies Allergy (Verified 10/23/19 08:29) Past Medical History - Social History Smoking Status: Former Smoker Chew tobacco use (# tins/day): No Frequency of alcohol use: Social Drug Abuse: Marijuana Family History: CVA Patient has homicidal ideation: No - Past Medical History Cardiac Medical History: Reports: Hx Hypertension Pulmonary Medical History: Reports: Hx COPD - emphazema Neurological Medical History: Reports: Hx Seizures - due to hyponatremia Renal/ Medical History: Denies: Hx Peritoneal Dialysis Past Surgical History: Reports: Hx Orthopedic Surgery - Shoulder surgery with placement of some plates secondary to injury Review of Systems - Review of Systems Notes: REVIEW OF SYSTEMS: CONSTITUTIONAL: -fevers, -chills EENT: -eye pain, -difficulty swallowing, -nasal congestion CARDIOVASCULAR: + chest pain, -syncope. RESPIRATORY: -cough, -SOB GASTROINTESTINAL: + abdominal pain, -nausea, -vomiting, -diarrhea GENITOURINARY: -dysuria, -hematuria MUSCULOSKELETAL: -back pain, -neck pain SKIN: -rash or skin lesions. HEMATOLOGIC: -easy bruising or bleeding. LYMPHATIC: -swollen, enlarged glands. NEUROLOGICAL: -altered mental status or loss of consciousness, -headache, - neurologic symptoms PSYCHIATRIC: -anxiety, -depression. ALL OTHER SYSTEMS REVIEWED AND NEGATIVE. Physical Exam - Vital signs Vitals: Temp Pulse Resp BP Pulse Ox 97.6 F 137 H 20 153/130 H 99 10/23/19 08:02 10/23/19 08:02 10/23/19 08:02 10/23/19 08:02 10/23/19 08:02 - Notes Notes: PHYSICAL EXAMINATION: GENERAL: Well-appearing, well-nourished and in no acute distress. HEAD: Atraumatic, normocephalic. EYES: Pupils equal round and reactive to light, extraocular movements intact, sclera anicteric, conjunctiva are normal. ENT: nares patent, oropharynx clear without exudates. Moist mucous membranes. NECK: Normal range of motion, supple without lymphadenopathy LUNGS: Breath sounds clear to auscultation bilaterally and equal. No wheezes rales or rhonchi. HEART: Regular rate and rhythm without murmurs ABDOMEN: Soft, nontender, normoactive bowel sounds. No guarding, no rebound. No masses appreciated. EXTREMITIES: Normal range of motion, no pitting or edema. No cyanosis. NEUROLOGICAL: Cranial nerves grossly intact. Normal speech, normal gait. Normal sensory and motor exams. PSYCH: Normal mood, normal affect. SKIN: Warm, Dry, normal turgor, no rashes or lesions noted. Course - Re-evaluation Re-evalutation: 10/23/19 09:12 Appearing man history of COPD and pancreatitis. Patient recently stopped smoking and stopped drinking alcohol. Pain that feels different from his pancreatitis right upper quadrant right lower lateral chest. Will obtain labs CAT scan chest abdomen pelvis 10/23/19 11:24 Patient found to have profound elevation in lipase. Patient has CAT scan chest abdomen pelvis performed no acute process no pulmonary embolus or other abnorm ality. Patient will be discharged home with oral opioids and antiemetics. Return if anything changes - Vital Signs Vital signs: Temp Pulse Resp BP Pulse Ox 97.6 F 137 H 20 153/130 H 99 10/23/19 08:02 10/23/19 08:02 10/23/19 08:02 10/23/19 08:02 10/23/19 08:02 - Laboratory Result Diagrams: 10/23/19 09:10 10/23/19 09:10 Laboratory results interpreted by me: 10/23/19 10/23/19 10/23/19 09:10 09:10 10:45 RBC 3.46 L Hgb 12.2 L Hct 35.6 L MCV 103 H MCH 35.1 H RDW 15.7 H Lymph % (Auto) 9.0 L Seg Neutrophils % 78.3 H Sodium 135.1 L BUN 21 H Glucose 122 H Alkaline Phosphatase 220 H Lipase 5863.0 H Urine Protein 100 H Urine Ketones TRACE H Urine Blood LARGE H Discharge - Discharge Clinical Impression: Pancreatitis Qualifiers: Chronicity: chronic Pancreatitis type: unspecified pancreatitis type Qualified Code(s): K86.1 - Other chronic pancreatitis Condition: Stable Disposition: HOME, SELF-CARE Instructions: Pancreatitis ([facility]) Additional Instructions: See your PCP Prescriptions: Oxycodone HCl [Oxycontin Ir 5 Mg Tablet] 1 - 2 mg PO Q4H PRN #15 tablet PRN Reason: For Pain Ondansetron [Zofran Odt 4 mg Tablet] 1 - 2 tab PO Q4H PRN #15 tab.rapdis PRN Reason: For Nausea/Vomiting
[2019-10-23] MEDS ORDERED: MORPHINE SULFATE 10 MG/ML INJ IV ONE (09:24)
[2019-10-23] MEDS ORDERED: NORMAL SALINE 1000 ML 1,000 ML IV ONE (09:24)
[2019-10-23 09:42] LABS: ABSOLUTE EOSINOPHILS # (AUTO) 0.1 10^3/uL (0.0-0.6); ABSOLUTE LYMPHOCYTES (AUTO) 0.9 10^3/uL (0.5-4.7); ABSOLUTE MONOCYTES (AUTO) 1.1 10^3/uL (0.1-1.4); ABSOLUTE NEUT (AUTO) 7.7 10^3/uL (1.7-8.2); BASOPHILS % (AUTO) 0.3 % (0-2); EOSINOPHILS % (AUTO) 0.7 % (0-6); HEMATOCRIT 35.6 % (37.9-51.0); HEMOGLOBIN 12.2 g/dL (13.5-17.0); MEAN CORPUSCULAR HEMOGLOBIN 35.1 pg (27.0-33.4); MEAN CORPUSCULAR HGB CONC 34.2 g/dL (32.0-36.0); MEAN CORPUSCULAR VOLUME 103 fl (80-97); MONOCYTES % (AUTO) 11.7 % (3-13); PLATELET COUNT 238 10^3/uL (150-450); RED BLOOD COUNT 3.46 10^6/uL (4.35-5.55); RED CELL DISTRIBUTION WIDTH 15.7 % (11.5-14.0); SEGMENTED NEUTROPHILS % (AUTO) 78.3 % (42-78); TOTAL CELLS COUNTED % (AUTO) 100 %; WHITE BLOOD COUNT 9.8 10^3/uL (4.0-10.5)
[2019-10-23 09:57] LABS: ALKALINE PHOSPHATASE 220 U/L (38-126); ANION GAP 12 (5-19); ASPARTATE AMINO TRANSFERASE 26 U/L (17-59); BILIRUBIN,DIRECT 0.2 mg/dL (0.0-0.4); BLOOD UREA NITROGEN 21 mg/dL (7-20); CALCIUM 9.6 mg/dL (8.4-10.2); CARBON DIOXIDE 24 mmol/L (22-30); CHLORIDE 99 mmol/L (98-107); GLUCOSE 122 mg/dL (75-110); POTASSIUM 4.4 mmol/L (3.6-5.0); TOTAL PROTEIN 7.7 g/dL (6.3-8.2)
--- NOTE | 2019-10-23 11:02 | RADIOLOGY REPORT (SQ) ---
EXAM DESCRIPTION: CTA CHEST; CT ABD/PELVIS WITH IV ONLY IMAGES COMPLETED DATE/TIME: 10/23/2019 10:26 am REASON FOR STUDY: chest pain; RUQ pain COMPARISON: Two-view chest 06/15/2019 CONTRAST TYPE AND DOSE: contrast/concentration: Isovue 350.00 mmol/ml; Total Contrast Delivered: 62. 0 ml; Total Saline Delivered: 36.0 ml RENAL FUNCTION: Creatinine 1.1 TECHNIQUE: CT angiogram of the chest performed using helical scanning technique with dynamic intrave nous contrast injection. Images reviewed with lung, soft tissue and bone windows. Reconstructed jessica nal and sagittal MPR images reviewed through the pulmonary arteries and thoracic aorta. All images s tored on PACS. CT scan of the abdomen and pelvis performed with intravenous and with oral contrastusing helical scan shelly technique with dynamic intravenous contrast injection. Images reviewed with lung, soft tissue a nd bone windows. Reconstructed coronal and sagittal MPR images reviewed. Delayed images for evaluat ion of the urinary system also acquired and evaluated. All images stored on PACS. All CT scanners at this facility use dose modulation, iterative reconstruction, and/or weight based d osing when appropriate to reduce radiation dose to as low as reasonably achievable (ALARA). [facility]: Dose Right [facility]: CareDose [facility]: Dose Right [facility]: Teradose 4D [facility]: [employer] RADIATION DOSE: CT Rad equipment meets quality standard of care and radiation dose reduction techniq ues were employed. CTDIvol: 9.9 - 17.4 mGy. DLP: 1976 mGy-cm. . LIMITATIONS: None. FINDINGS: CT angio CHEST: LUNGS AND PLEURA: No opacities, nodules, masses. No pneumothorax. No effusions. HILAR AND MEDIASTINAL STRUCTURES: No identified masses or abnormal nodes. HEART AND VASCULAR STRUCTURES: No aneurysm or dissection. No pulmonary emboli. No pericardial effus ion. HARDWARE: None. THYROID AND OTHER SOFT TISSUES: No masses. No adenopathy. BONES: No significant finding. OTHER: No other significant finding. ABDOMEN AND PELVIS: LIVER: Normal size. No masses. No dilated ducts. SPLEEN: Normal size. No focal lesions. PANCREAS: Acute on chronic pancreatitis is present. Extensive pancreatic parenchymal calcification o jassi the head neck body and tail, pancreatic duct at the pancreatic body 12 mm in diameter. 1.3 x 0.7 cm cyst, 1.7 x 1.4 cm cyst at the pancreatic head axial image 37. There is extensive retroperitoneal inflammation around the pancreatic head, extending into the tho hepatis and right upper quadrant perineum. A 3 x 2 cm fluid-filled phlegmon is present in the right upper quadrant pericolic fat axial image 37 and coronal image 14. Small amount of fluid in the lesser sac without well-circumscribed pseudocyst. No fluid in the right pericolic gutter or pelvis. GALLBLADDER: Distended, stones layer dependently in the gallbladder. There is right upper quadrant i nflammation around the gallbladder ADRENAL GLANDS: No significant masses or asymmetry. RIGHT KIDNEY AND URETER: No solid masses. No significant calcification. No hydronephrosis or hydroure ter. LEFT KIDNEY AND URETER: No solid masses. No significant calcification. No hydronephrosis or hydrouret er. AORTA AND VESSELS: No aneurysm. No dissection. Renal arteries, SMA, celiac without stenosis. RETROPERITONEUM: No retroperitoneal adenopathy, hemorrhage or masses. BOWEL AND PERITONEAL CAVITY: No masses or inflammatory changes. No peritoneal masses. APPENDIX: Normal. ABDOMINAL WALL: No masses. No hernias. PELVIS: No mass or free fluid. Normal bladder. BONES: No significant or acute findings. OTHER: No other significant finding. IMPRESSION: No CT angio evidence of acute pulmonary emboli or thoracic aortic dissection Acute on chronic pancreatitis. Gallstones in the gallbladder. Inflammation in the right upper quadrant along the tho hepatis and gallbladder, secondary cholecystitis could be present TECHNICAL DOCUMENTATION: JOB ID: [id number] Quality ID # [id number]: Final reports with documentation of one or more dose reduction techniques (e.g., Au tomated exposure control, adjustment of the mA and/or kV according to patient size, use of iterative reconstruction technique) 2010 [employer]- All Rights Reserved Reading location - IP/workstation name: [email or web address]
[2019-10-23 11:03] LABS: APPEARANCE,URINE CLEAR; BILIRUBIN,URINE NEGATIVE (NEGATIVE); COLOR,URINE YELLOW; GLUCOSE, URINE NEGATIVE (NEGATIVE); KETONES,URINE TRACE mg/dL (NEGATIVE); LEUKOCYTE ESTERASE,URINE NEGATIVE (NEGATIVE); NITRITE,URINE NEGATIVE (NEGATIVE); PROTEIN,URINE 100 mg/dL (NEGATIVE); URINE SPECIFIC GRAVITY 1.033; UROBILINOGEN,URINE NEGATIVE mg/dL (<2.0)
[2019-10-23 11:57] VITALS: BP 130/86
== END 2019-10-23 11:40 | disposition home or self-care (01) ==
LOC: ER 07:57
DX: K86.1 Other chronic pancreatitis (principal); F12.10 Cannabis abuse, uncomplicated; J43.9 Emphysema, unspecified; Z87.891 Personal history of nicotine dependence
CPT/HCPCS: 99284; 96361; 96374; 36415; 83690; 85025; 80053; 81001; 71275; 74177; J2270; J7030